=== PATIENT | female | born 1935 | race Caucasian/White ===

== ENCOUNTER 2017-03-31 14:22 | Emergency (ER) | payer MEDICARE, BC ==
[~2017-03-31] VITALS: Ht 160 cm; Wt 61.2 kg
[~2017-03-31 14:22] MED LIST: ASPIRIN EC325 MG PO; AZOPT10 ML OD; CHLORTHALIDONE25 MG PO; CIPRO500 MG PO; CLOBETASOL PROP15 GM TOP; DIOVAN160 MG PO; FLAGYL500 MG PO; MELOXICAM7.5 MG PO; METOPROLOL SUCC50 MG PO; ONDANSETRON ODT4 MG PO; PROMETHAZINE HC25 M1 PO; TACROLIMUS30 G1 TP; TIMOLOL MALEATE5 M1 OPTH; TRAVATAN Z5 ML OPTH; VALSARTAN160 MG PO
[2017-03-31] MEDS ORDERED: MELOXICAM15 MG PO (14:34)
[2017-03-31] MEDS ORDERED: COREG3.125 MG PO (15:26)
--- NOTE | 2017-04-01 17:03 | EKG ---
[facility] [address] [place], [place] [address] Signed Sinus bradycardia with 1st degree AV block with frequent premature ventricular complexes in a pattern of bigeminy Left anterior fascicular block Anteroseptal infarct , age undetermined Abnormal ECG No previous ECGs available Confirmed by DEIDRA NGUYEN MD ([id number]) on 04/01/2017 5:02:52 PM Electronically Signed By: DEIDRA NGUYEN MD 04/01/17 1703 PATIENT NAME: IRAJ ARIZMENDI Electrocardiogram DATE OF : 33 PHYSICIAN: DEIDRA NGUYEN MD REPORT #: [id number] REPORT IS CONFIDENTIAL AND NOT TO BE RELEASED WITHOUT AUTHORIZATION
== END 2017-03-31 15:41 | disposition home or self-care (01) ==
LOC: ED 14:22
DX: R00.2 Palpitations (principal); I25.2 Old myocardial infarction; Z95.1 Presence of aortocoronary bypass graft; Z90.49 Acquired absence of other specified parts of digestive tract; Z88.5 Allergy status to narcotic agent; Z88.2 Allergy status to sulfonamides; Z88.8 Allergy status to other drugs, medicaments and biological substances; Z79.899 Other long term (current) drug therapy; Z79.82 Long term (current) use of aspirin
CPT/HCPCS: 71010; 80053; 83880; 84484; 85025; 93005; 93010; 99284

== ENCOUNTER 2017-04-09 06:45 | Emergency (ER) | payer MEDICARE, BC ==
[~2017-04-09] VITALS: Ht 160 cm; Wt 61.2 kg
[~2017-04-09 06:45] MED LIST changes: +COREG3.125 MG PO; +MELOXICAM15 MG PO
[2017-04-09] MEDS ORDERED: VALSARTAN160 MG PO (06:57)
[2017-04-09] MEDS ORDERED: COREG3.125 MG PO (06:57)
== END 2017-04-09 09:45 | disposition home or self-care (01) ==
LOC: ED 06:45
DX: T84.020A Dislocation of internal right hip prosthesis, initial encounter (principal); I25.2 Old myocardial infarction; Z95.1 Presence of aortocoronary bypass graft; Z90.49 Acquired absence of other specified parts of digestive tract; Z88.2 Allergy status to sulfonamides; Z88.1 Allergy status to other antibiotic agents; Z88.5 Allergy status to narcotic agent
CPT/HCPCS: 73502; 94799; 96374; 96375; 99283; J1170; J2704

== ENCOUNTER 2017-12-26 16:27 | Emergency (ER) | payer MEDICARE, BC ==
[~2017-12-26] VITALS: Ht 160 cm; Wt 57.1 kg
--- OUTSIDE RECORDS SUMMARY | ~2017-12-26 | XMS | Clinical Summary ---
Demographics + + + | Address | [address] | | | [place] [address] | + + + | Home Phone | | + + + | Preferred Language | Unknown | + + + | Marital Status | | + + + | Denominational Affiliation | Unknown | + + + | Race | Unknown | + + + | Ethnic Group | Unknown | + + + Author + + + | Author | [facility] | + + + | Organization | [facility] | + + + | Address | Unknown | + + + | Phone | Unavailable | + + + Support + + +---------+ + | Name | Relationship | Address | Phone | + + +---------+ + | Beto Gomez | ECON | Unknown | | + + +---------+ + Care Team Providers + +------+ + | Care College Athlete Name | Role | Phone | + +------+ + | Pan Sarabia DO | PP | | + +------+ + Allergies + + + + + + | Active Allergy | Reactions | Severity | Noted | Comments | | | | | Date | | + + + + + + | Chlorthalidone | Other (See Comments) | Medium | 04/20/20 | Very low sodium, | | | | | 17 | felt weak | + + + + + + | Cephalexin | GI Distress | Low | 04/20/20 | | | | | | 17 | | + + + + + + | Oxycodone | Rash | Medium | 04/20/20 | | | | | | 17 | | + + + + + + | Sulfa Antibiotics | Rash | Medium | 04/06/20 | | | | | | 16 | | + + + + + + | Hydrocodone-Acetamin | Other (See Comments) | Medium | 04/20/20 | Not sure, confused | | ophen | | | 17 | and rash | + + + + + + Current Medications + + +--------+---------+------+------+-------+ | Prescription | Sig. | Disp. | Refills | Star | End | Statu | | | | | | t | Date | s | | | | | | Date | | | + + +--------+---------+------+------+-------+ | Magnesium 250 MG | Take 250 mg by mouth | | | | | Activ | | TABS tablet | daily. | | | | | e | + + +--------+---------+------+------+-------+ | aspirin 81 MG EC | Take 162 mg by mouth | | | | | Activ | | tablet | daily with | | | | | e | | | breakfast. | | | | | | + + +--------+---------+------+------+-------+ | Acetaminophen | Take by mouth as | | | | | Activ | | (TYLENOL 8 HOUR PO) | needed. | | | | | e | + + +--------+---------+------+------+-------+ | valsartan (DIOVAN) | Take 1 tablet by | | | 02/2 | | Activ | | 320 MG tablet | mouth daily. | | | 09/23 | | e | | | | | | 18 | | | + + +--------+---------+------+------+-------+ | amiodarone | Take 1 tablet by | 45 | 11 | /2 | 10/06 | Activ | | (PACERONE) 200 MG | mouth daily. | tablet | | 09/23 | 09/23 | e | | tablet | | | | 18 | 19 | | + + +--------+---------+------+------+-------+ | apixaban (ELIQUIS) | Take 1 tablet by | | | 10/06 | | Activ | | 2.5 MG tablet | mouth 2 (two) times | | | 09/23 | | e | | | daily. Cr 0.83 | | | 18 | | | | | 05/01/2917, samples | | | | | | | | given | | | | | | + + +--------+---------+------+------+-------+ | amLODIPine | Take 1 tablet by | 90 | 1 | 03/0 | 03/0 | Activ | | (NORVASC) 5 MG | mouth daily. | tablet | | 03/23 | 03/23 | e | | tablet | | | | 18 | 19 | | + + +--------+---------+------+------+-------+ Active Problems + + + | Problem | Noted Date | + + + | First degree AV block | 07/16/2017 | + + + + + | Overview: The OK interval was 230 ms on April 20, 2017. | + + + + + | Paroxysmal atrial fibrillation (HCC) | 06/01/2017 | + + + + + | Overview: She has daily episodes of atrial fibrillation, | | associated with increased heart rates, fatigue and shortness of | | breath. Has "no energy". On a recent transtelephonic event | | recorder, there were episodes of A. Fib with heart rates into the | | 170 bpm range. There was one 2.6 second pause. An echocardiogram | | in April 2016 revealed mild MR and TR, normal atrial sizes, | | grade 2 diastolic dysfunction and normal LV systolic function. | | Pulmonary pressures were top normal. I recommended adding | | amiodarone 400 mg twice per day for one week followed by 400 mg | | daily for a month and then 200 mg per day. Pulmonary function | | tests need to be obtained at baseline, then every 6 months, | | including carbon monoxide diffusion capacity. Thyroid function | | tests need to be performed at least the same intervals. I have | | reviewed the risks, benefits, and rationale for amiodarone with | | the patient in detail. She is anticoagulated with apixaban. The | | chads 2 vascular score is 4. A sleep study will be ordered, since | | she may well have sleep apnea. | + + + + + | Murmur, cardiac | 06/01/2017 | + + + + + | Overview: Mild mitral regurgitation seen on an echo. | + + + + + | Sinus bradycardia | 06/01/2017 | + + + + + | Overview: She has tachybradycardia syndrome. Rapid A. Fib . | | Given the sinus node dysfunction and her advanced age, amiodarone | | is probably the best agent to use. If she does not tolerate that | | because of bradycardia, a permanent pacemaker would be | | indicated. Amiodarone is fairly sinus node friendly, so hopefully | | a pacemaker will not be necessary. | + + + + + | Coronary artery disease | 06/01/2017 | + + + | Hx of CABG | 06/01/2017 | + + + + + | Overview: Hx CAB, CABG*1 (GUO to LAD). | | Hx PCI/stent: Hx POBA. | | Last Cath: 1991 Has no symptoms of angina. | + + + + + | Essential hypertension with goal blood pressure less than 130/80 | 04/06/2016 | + + + + + | Overview: Controlled on current therapy. Last Assessment & | | Plan: Hypertension, controlled, she'll continue her valsartan | | 160 mg daily, decrease the metoprolol succinate to 25 mg daily. 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 81yo | | WF, with symptoms of lightheadedness, usually when she arises. | | She is aware that she has a slow heart rate. She has a history | | of hypertension, and apparently had history of SVT for which she | | is placed on metoprolol. She's not had any episodes of racing | | heart lately, but she is aware of the skipped beats, she | | describes them as the thumb. This usually happens in the | | evenings, worse if she has had some wine or coffee. When she is | | active, she is unaware of the palpitations. . Known to | | have coronary artery disease with previous bypass surgery in | | 1991, apparently had a number of angioplasties prior to this | | (before the stent era). She thinks she may have had a small | | heart attack, but there was no congestive heart failure, | | congenital heart disease, rheumatic heart disease, or syncope. | | At our last visit, we reduced her metoprolol to 25 mg daily, and | | she states that she is feeling better. Recent echocardiogram | | reveals normal LV systolic function, mild MR, mild TR. Will | | continue current medications, follow clinically.Hx CAB, | | CABG*1 (GUO to LAD).Hx PCI/stent: Hx POBA.Hx Pacemaker/ICD: | | noLast Cath: 1991[facility], 04/14/2016 ([facility]): TDS, LVEF | | 65-70%, cardiac chamber dimensions grossly NML, mild MR, mild TR, | | est systolic PAP 32-37mmHg.Last Stress Test: na48hr , | | 04/17/2015: sinus rhythm, 50-82, averaging 59bpm, frequent PAC's, | | 15-beat PAT at 153bpm, occ PVC's, 7 pauses (2.1sec).ECG, | | 04/06/2016: sinus bradycardia, 51bpm, 1st degree AVB, LVH with ST-T | | changes, LAFB, PRWP. | + + Resolved Problems + + + + | Problem | Noted | Resolved | | | Date | Date | + + + + | Paroxysmal SVT (supraventricular tachycardia) | 06/01/20 | | | | 17 | 7 | + + + + | Bigeminal rhythm | 06/01/20 | | | | 17 | 7 | + + + + | Heart palpitations | 06/01/20 | | | | 17 | 7 | + + + + | HTN, goal below 140/80 | 06/01/20 | | | | 17 | 7 | + + + + Encounters +--------+ + + + + | Date | Type | Specialty | Care Team | Description | +--------+ + + + + | 11/23/ | Documentati | | Yamile Elena Only | | 2017 | on Only | | CHRISTOPH Irizarry | | +--------+ + + + + | 11/08/ | Refill | | Vianney Cherry | Medication Refill | | 2017 | | | ZIYAD Subramanian | | +--------+ + + + + | 11/02/ | Documentveronica | | Vianney Cherry | Other (BP log) | | 2017 | on Only | | ZIYAD Subramanian | | +--------+ + + + + | 10/25/ | Office | | Aris Curran, | Coronary artery | | 2018 | Visit | | MD | disease involving | | | | | | coronary bypass | | | | | | graft of lumbee | | | | | | heart with angina | | | | | | pectoris (HCC) | | | | | | (Primary Dx); | | | | | | Essential | | | | | | hypertension with | | | | | | goal blood pressure | | | | | | less than 130/80; | | | | | | Paroxysmal atrial | | | | | | fibrillation ([facility]); | | | | | | Sinus bradycardia | +--------+ + + + + | 10/25/ | Documentati | | Dilip Vianney | Other (BP log) | | 2018 | on Only | | ZIYAD Subramanian | | +--------+ + + + + from Last 3 Months Family History + + +-------+ + | Medical History | Relation | Name | Comments | + + +-------+ + | Heart disease | Mother | Naoma | | + + +-------+ + | High cholesterol | Mother | Naoma | | + + +-------+ + + +-------+ + + | Relation | Name | Status | Comments | + +-------+ + + | Father | | | ruptured appendix | | | | (Age | | | | | 48) | | + +-------+ + + | Mother | Naoma | | HTN, heart disease | | | | (Age | | | | | 86) | | + +-------+ + + Social History + +-------+ +--------+------+ [...] on file | | + + + Last Filed Vital Signs + + + + | Vital Sign | Reading | Time Taken | + + + + | Blood Pressure | 160/80 | 10/25/2017 1:27 PM PST | + + + + | Pulse | 53 | 10/25/2017 1:27 PM PST | + + + + | Temperature | - | - | + + + + | Respiratory Rate | 16 | 05/05/2016 11:10 AM PDT | + + + + | Oxygen Saturation | 98% | 10/25/2017 1:27 PM PST | + + + + | Inhaled Oxygen | - | - | | Concentration | | | + + + + | Weight | 58.5 kg (129 lb) | 10/25/2017 1:27 PM PST | + + + + | Height | 162.6 cm (5' 4") | 10/25/2017 1:27 PM PST | + + + + | Body Mass Index | 22.14 | 10/25/2017 1:27 PM PST | + + + + Plan of Treatment +--------+---------+ + + + | Date | Type | Specialty | Care Team | Description | +--------+---------+ + + + | 01/10/ | Office | | Aris Curran, | | | 2018 | Visit | | MD Dianna Romero | | | | | | Dr [address], | | | | | | [place] [address] | | | | | | [phone] | | | | | | | | +--------+---------+ + + + + + + + + | Health Maintenance | Due Date | Last Done | Comments | + + + + + | Vaccine: | | | | | Dtap/Tdap/Td (1 - | 3 | | | | Tdap) | | | | + + + + + | DEXA SCAN SCREENING | | | | | | 9 | | | + + + + + | Vaccine: | | | | | Pneumococcal 65+ | 9 | | | | Low/Medium Risk (1 | | | | | of 2 - PCV13) | | | | + + + + + | Vaccine: Influenza | | | | | (Season Ended) | 8 | | | + + + + + Results Not on filefrom Last 3 Months Insurance + +--------+ +------+-------+ + | Payer | Benefi | Subscriber | Type | Phone | Address | | | t Plan | ID | | | | | | / | | | | | | | Group | | | | | + +--------+ +------+-------+ + | PREMERA | PREMER | xxxxxxxxx | | | [address] [address] | | | [employer] BLUE | | | | [place], [place] | | | [place] | | | | [phone] | | | FED | | | | | | | PPO | | | | | + +--------+ +------+-------+ + | MEDICARE | MEDICA | xxxxxxxxxxx | | | [address] | | | RE | | | | [place] [phone] | | | IP-OP | | | | | + +--------+ +------+-------+ + + +--------+ +--------+ + + | Guarantor Name | Accoun | Relation to | Date | Phone | Billing Address | | | t Type | Patient | of | | | | | | | | | | + +--------+ +--------+ + + | MARYANN GOMEZ | Person | Self [birth year] Home: | [address] | | | al/Nathaniel | | 1935 | [phone] [place] [address] | | | ashli | | | [phone] | | + +--------+ +--------+ + +
--- OUTSIDE RECORDS SUMMARY | ~2017-12-26 | XMS | Encounter Summary ---
Demographics + + + | Address | [address] | | | [place] [address] | + + + | Home Phone | | + + + | Preferred Language | Unknown | + + + | Marital Status | | + + + | Spiritism Affiliation | Unknown | + + + | Race | Unknown | + + + | Ethnic Group | Unknown | + + + Author + + + | Author | [facility] | + + + | Organization | [facility] | + + + | Address | Unknown | + + + | Phone | Unavailable | + + + Support + + +---------+ + | Name | Relationship | Address | Phone | + + +---------+ + | Beto Gomez | ECON | Unknown | | + + +---------+ + Care Team Providers + +------+ + | Care Right Of Way Cutter Name | Role | Phone | + +------+ + | Pan Sarabia DO | PCP | | + +------+ + Reason for Visit +--------+ + | Reason | Comments | +--------+ + | Other | BP log | +--------+ + Encounter Details +--------+ + + + + | Date | Type | Department | Care Team | Description | +--------+ + + + + | 11/02/ | Documentati | [facility] | Vianney Cherry | Other (BP log) | | 2018 | on Only | Cardiology Wojciech Subramanian CMA | | | | | [address] | | | | | | [place] | | | | | | [address] | | | | | | [phone] | | | +--------+ + + + [...] + + | 01/10/ | Office | Cardiology | Aris Curran, | | | 2017 | Visit | | MD Dianna Romero | | | | | | Dr [address], | | | | | | [place] [address] | | | | | | [phone] | | | | | | | | +--------+---------+ + + + as of this encounter Visit Diagnoses Not on filein this encounter"
--- OUTSIDE RECORDS SUMMARY | ~2017-12-26 | XMS | Encounter Summary ---
Demographics + + + | Address | [address] | | | [place] [address] | + + + | Home Phone | | + + + | Preferred Language | Unknown | + + + | Marital Status | | + + + | Muslim Affiliation | Unknown | + + + | Race | Unknown | + + + | Ethnic Group | Unknown | + + + Author + + + | Author | [facility] | + + + | Organization | [facility] | + + + | Address | Unknown | + + + | Phone | Unavailable | + + + Support + + +---------+ + | Name | Relationship | Address | Phone | + + +---------+ + | Beto Gomez | ECON | Unknown | | + + +---------+ + Care Team Providers + +------+ + | Care Sheet Rock Hanger Name | Role | Phone | + +------+ + | Pan Sarabia DO | PCP | | + +------+ + Reason for Visit + + + | Reason | Comments | + + + | Labs Only | | + + + Encounter Details +--------+ + + + + | Date | Type | Department | Care Team | Description | +--------+ + + + + | 11/23/ | Documentati | [facility] | [place], | Labs Only | | 2017 | on Only | [place] | CHRISTOPH Irizarry | | | | | [address] | | | | | | [place] | | | | | | [address] | | | | | | [phone] | | | +--------+ + + + [...] | | | | | | [place] [address] | | | | | | [phone] | | | | | | | | +--------+---------+ + + + as of this encounter Visit Diagnoses Not on filein this encounter"
--- OUTSIDE RECORDS SUMMARY | ~2017-12-26 | XMS | Encounter Summary ---
Demographics + + + | Address | [address] | | | [place] [address] | + + + | Home Phone | | + + + | Preferred Language | Unknown | + + + | Marital Status | | + + + | Mormonism Affiliation | Unknown | + + + | Race | Unknown | + + + | Ethnic Group | Unknown | + + + Author + + + | Author | [facility] | + + + | Organization | [facility] | + + + | Address | Unknown | + + + | Phone | Unavailable | + + + Support + + +---------+ + | Name | Relationship | Address | Phone | + + +---------+ + | Beto Gomez | ECON | Unknown | | + + +---------+ + Care Team Providers + +------+ + | Care Development Trainer Name | Role | Phone | + +------+ + | Pan Isabel DO | PCP | | + +------+ + Reason for Visit + + + | Reason | Comments | + + + | Atrial Fibrillation | | + + + Encounter Details +--------+---------+ + + + | Date | Type | Department | Care Team | Description | +--------+---------+ + + + | 10/25/ | Office | D[facility]RE[facility] Corbett | Aris Thayer, | Coronary artery | | 2018 | Visit | Cardiology Karen | [address] | disease involving | | | | [address] | Dr Sanders, | coronary bypass | | | | [facility] [address] | [place] [address] | graft of [place] | | | | [place] [address] | [phone] | heart with angina | | | | [phone] | | pectoris (HCC) | | | | | | (Primary Dx); | | | | | | Essential | | | | | | hypertension with | | | | | | goal blood pressure | | | | | | less than 130/80; | | | | | | Paroxysmal atrial | | | | | | fibrillation (HCC); | | | | | | Sinus bradycardia | +--------+---------+ + + + Social History [...] PM PST | + + + + in this encounter Progress Aris Holley MD - 10/25/2017 1:30 PM PSTFormatting of this note may be different fro m the original. Date of visit: 10/25/2017 Primary Care Physician: PAN ISABEL CHIEF COMPLAINT: Chief Complaint Patient presents with Atrial Fibrillation HISTORY OF PRESENT ILLNESS: Maryann Tejada is 82 y.o. here for follow up visit. Modestly active female. Denies any recurrent palpitations. Has been tolerating amiodarone 200 mg daily. On anticoagulation with apixaban however she has been having daily bleeding from her gums a nd easy bruising hence she was taking only once a day. Previously evaluated for paroxysmal atrial fibrillation. Tolerate beta blockers secondary t o fatigue and tiredness. Event monitor was done up beta murray and patient was found to have few pauses longest of 2.6 seconds. Could not tolerate furosemide 20 mg secondary to orthostatic hypotension. 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 History of SVT. Past medical history, SH, FH, and medications were reviewed in the chart. Medications: Outpatient Encounter Prescriptions as of 10/25/2017 Medication Sig Dispense Refill amiodarone (PACERONE) 200 MG tablet Take 1 tablet by mouth daily. 45 tablet 11 apixaban (ELIQUIS) 2.5 MG tablet Take 1 tablet by mouth 2 (two) times daily. Cr 0.83 05/01/2917, samples given aspirin 81 MG EC tablet Take 162 mg by mouth daily with breakfast. Magnesium 250 MG TABS tablet Take 250 mg by mouth daily. valsartan (DIOVAN) 320 MG tablet Take 1 tablet by mouth daily. [DISCONTINUED] amiodarone (PACERONE) 200 MG tablet Take 2 tablets by mouth 2 (two) time s daily. 400 mg twice a day for one week, then 400 mg once a day for one month, then 200 mg once a day (Patient taking differently: Take 250 mg by mouth daily.) 60 tablet 11 [DISCONTINUED] amiodarone (PACERONE) 200 MG tablet Take 1.5 tablets by mouth daily. [DISCONTINUED] apixaban (ELIQUIS) 5 MG tablet Take 1 tablet by mouth 2 (two) times lizabeth y. Cr 0.83 05/01/2917, samples given 180 tablet 3 [DISCONTINUED] valsartan (DIOVAN) 320 MG tablet Take 0.5 tablets by mouth 2 (two) times daily. (Patient taking differently: Take 320 mg by mouth daily.) 120 tablet 2 Acetaminophen (TYLENOL 8 HOUR PO) Take by mouth as needed. amLODIPine (NORVASC) 2.5 MG tablet Take 1 tablet by mouth daily. 30 tablet 1 No facility-administered encounter medications on file as of 10/25/2017. Allergies Allergies Allergen Reactions Chlorthalidone Other (See Comments) Very low sodium, felt weak Oxycodone Rash Sulfa Antibiotics Rash Vicodin [Hydrocodone-Acetaminophen] Other (See Comments) Not sure, confused and rash Keflex [Cephalexin] GI Distress REVIEW OF SYSTEMS: Constitutional: negative for fatigue. No fever, chills, and rigors. HEENT: Wears glasses. Negative for nosebleeds, ear discharge, nasal congestion. Eyes: Negative for visual disturbance, redness, or secretion. Respiratory: Negative for cough, sputum production, hemoptysis, wheezing. Cardiovascular: As HPI. Gastrointestinal: Negative for nausea, vomiting, diarrhea, abdominal pain and blood in stoo l. Genitourinary: Negative for dysuria or hematuria. Musculoskeletal: Back and hip pain with previous history of hip replacement. Skin: Negative for rash. Neurological: Negative for dizziness. No numbness. No recent falls. No slurred speech. Hematological: No significant bruising. Psychiatric/Behavioral: No depression or anxiety. PHYSICAL EXAM Vital Signs: BP 132/70 (BP Location: Left upper arm, Patient Position: Sitting) | Pulse 53 | Ht 1.626 m (5' 4") | Wt 58.5 kg (129 lb) | SpO2 98% | BMI 22.14 kg/m GENERAL APPEARANCE: Alert, oriented, cooperative, no distress, appears stated age. HEENT: Extraocular movements were intact. No jaundice. Pupiles round and reactive. NECK: No JVD, lymphadenopathy. Carotid upstrokes normal. No carotid bruit heard. CARDIAC: Regular rhythm and rate. There is normal S1 and S2. No galop. Systolic murmur in the left sternal border radiating to the apex consistent with MR. CHEST: Normal bilateral symmetrical chest excursion.ackles or wheezing. No evidence of dull ness. ABDOMEN: Soft.No tenderness or guarding. No palpable organs. Active bowel sounds. EXTREMITIES: No lower extremities edema, cyanosis or clubbing. NEURO: Alert and oriented times three with no focal deficit. Cranial nerves are grossly no rmal. SKIN: Warm and dry. No rash. Psych: Normal affect and mood. DATA 2016: Sodium 136, potassium 4.5, chloride 102, glucose 116, BUN 20, creatinine 0.83, GFR 66. AST 18, ALT 14, alk phos 90, total bilirubin 0.5, magnesium 2.2 03/14/2016: White blood cells 6.9, looping 12.2, platelets 202, sodium 134, potassium 4.3, chloride 103 , bicarbonate 22, BUN 19, creatinine 0.87. Calcium calcium 9.7, glucose 89. Total cholestero l 193, triglycerides 93, LDL 106, HDL 69, ALT 21, AST 32, hemoglobin A1c 5.5. Hx CAB, CABG*1 (GUO to LAD). Hx PCI/stent: Hx POBA. Last Cath: 1991 Last Echo, 04/14/2016 ([facility]): TDS, LVEF 65-70%, cardiac chamber dimensions grossly NML, mild MR, mild TR, est systolic PAP 32-37mmHg. 05/01/2017 Predominantly sinus rhythm. Average heart rate was 60 bpm with a range of 54-107 bpm. Multiple episodes of supraventricular tachycardia with the longest at 18 beats, and the fas test heart rate in the 161 bpm. Paroxysmal atrial fibrillation with RVR, with a longest episode of 49 minutes and a rate of 161 bpm and average rate at 75 bpm 48hr HM, 04/17/2015: sinus rhythm, 50-82, averaging 59bpm, frequent PAC's, 15-beat PAT at 15 3bpm, occ PVC's, 7 pauses (2.1sec). ECG, 07/12/2017 Ordered and reviewed by myself Sinus rhythm with first-degree AV block, poor R-wave progres jarred, frequent premature rupture contractions, premature ventricular contractions. 04/06/2016: sinus bradycardia, 51bpm, 1st degree AVB, LVH with ST-T changes, LAFB, PRWP. ASSESSMENT: Patient is 82-year-old female with the following medical problems. 1. 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 Denies any chest pain, no anginal symptoms. 2. Paroxysmal atrial fibrillation. On rate control strategy. Controlled with amiodarone Cou ld not tolerate beta blockers secondary to fatigue and tiredness patient was found to have m arked bradycardia heart rate will decrease to the 30s. CHADSVASc of 4. 3. Preserved LV function. 4. Hypertension, left pressure is above goal. Monitored at home and has been elevated. 5. Mild mitral regurgitation with no signs of congestive heart failure. Plan: Patient blood pressure has been above goal. However tolerating the amiodarone. Could not to lerate beta blockers. 1. Continue with Valsartan 320 mg po q day. Continue to monitor blood pressure. 2. Continue with anticoagulation. Patient is complaining of recurrent bleeding gums and has been decreasing her Apixaban to once daily, hence will change that to 2.5 mg bid. 3. We will start amlodipine 2.5 mg po q day and monitor patient's blood pressure. 4. I will follow up with the patient in 3 months. 5. Discussed an exercise program/ walking daily. *This report has been prepared using a voice recognition system. The report was reviewed fo r accuracy, however, sound-alike word errors, addition and/or deletions may occur. If there is any question about this report please contact me. Aris Thayer MD, MPHin this encounter Plan of Treatment +--------+---------+ + + + | Date | Type | Specialty | Care Team | Description | +--------+---------+ + + + | 01/10/ | Office | Cardiology | Aris Thayer, | | | 2018 | Visit | | MD Dianna Romero | | | | | | Dr Sanders, | | | | | | [place] [address] | | | | | | [phone] | | | | | | | | +--------+---------+ + + + + +--------+ + + | Name | Priori | Associated Diagnoses | Order Schedule | | | ty | | | + +--------+ + + | TSH | Routin | Paroxysmal atrial | Expected: | | | e | fibrillation ([facility]) | 11/22/2017, Expires: | | | | | 10/25/2018 | + +--------+ + + | Comprehensive metabolic panel | Routin | Coronary artery | Expected: | | | e | disease involving | 11/22/2017, Expires: | | | | coronary bypass | 10/25/2018 | | | | graft of [place] | | | | | heart with angina | | | | | pectoris ([facility]) | | | | | Essential | | | | | hypertension with | | | | | goal blood pressure | | | | | less than 130/80 | | | | | Paroxysmal atrial | | | | | fibrillation ([facility]) | | + +--------+ + + | CBC and differential | Routin | Coronary artery | Expected: | | | e | disease involving | 11/22/2017, Expires: | | | | coronary bypass | 10/25/2018 | | | | graft of [place] | | | | | heart with angina | | | | | pectoris ([facility]) | | | | | Essential | | | | | hypertension with | | | | | goal blood pressure | | | | | less than 130/80 | | | | | Paroxysmal atrial | | | | | fibrillation ([facility]) | | + +--------+ + + as of this encounter Visit Diagnoses + + | Diagnosis | + + | Coronary artery disease involving coronary bypass graft of [place] heart with angina | | pectoris ([facility]) - Primary | + + | Essential hypertension with goal blood pressure less than 130/80 | + + | Paroxysmal atrial fibrillation (HCC) | + + | Atrial fibrillation | + + | Sinus bradycardia | + + | Other specified cardiac dysrhythmias | + +
--- OUTSIDE RECORDS SUMMARY | ~2017-12-26 | XMS | Encounter Summary ---
Demographics + + + | Address | [address] | | | [place] [address] | + + + | Home Phone | | + + + | Preferred Language | Unknown | + + + | Marital Status | | + + + | Buddhism Affiliation | Unknown | + + + | Race | Unknown | + + + | Ethnic Group | Unknown | + + + Author + + + | Author | [facility] | + + + | Organization | [facility] | + + + | Address | Unknown | + + + | Phone | Unavailable | + + + Support + + +---------+ + | Name | Relationship | Address | Phone | + + +---------+ + | Beto Gomez | ECON | Unknown | | + + +---------+ + Care Team Providers + +------+ + | Care Investment Counselor Name | Role | Phone | + [...] Description | +--------+--------+ + + + | 11/08/ | Refill | DERREK Aric | Vianney Cherry | Medication Refill | | 2017 | | Cardiology [place] Subramanian C[facility] | | | | | [address] | | | | | | [address] | | | | | | [place] [address] | | | | | | [phone] | | | +--------+--------+ + + + [...] | | | | | | [place] [address] | | | | | | [phone] | | | | | | | | +--------+---------+ + + + as of this encounter Visit Diagnoses Not on filein this encounter"
--- OUTSIDE RECORDS SUMMARY | ~2017-12-26 | XMS | Encounter Summary ---
Demographics + + + | Address | [address] | | | [place] [address] | + + + | Home Phone | | + + + | Preferred Language | Unknown | + + + | Marital Status | | + + + | Evangelical Affiliation | Unknown | + + + | Race | Unknown | + + + | Ethnic Group | Unknown | + + + Author + + + | Author | [facility] | + + + | Organization | [facility] | + + + | Address | Unknown | + + + | Phone | Unavailable | + + + Support + + +---------+ + | Name | Relationship | Address | Phone | + + +---------+ + | Beto Gomez | ECON | Unknown | | + + +---------+ + Care Team Providers + +------+ + | Care Garage Door Installer Name | Role | Phone | + [...] | coronary bypass | | | | [facility] [address] | [place] [address] | graft of [place] | | | | [place] [address] | [phone] | heart with angina | | | | [phone] | | pectoris (HCC) | | | [...] POBA. Last Cath: 1991 Last Echo, 04/14/2016 ([facility]): TDS, LVEF 65-70%, cardiac chamber dimensions grossly [...] | | | | | | [place] [address] | | | | | | [phone] | | | | | | | | +--------+---------+ + + + + +--------+ + + | Name | Priori | Associated Diagnoses | Order Schedule | | | ty | | | + +--------+ + + | TSH | Routin | Paroxysmal atrial | Expected: | | | e | fibrillation ([facility]) | 11/22/2017, Expires: | | | | | 10/25/2018 | + +--------+ + + | Comprehensive metabolic panel | Routin | Coronary artery | Expected: | | | e | disease involving | 11/22/2017, Expires: | | | | coronary bypass | 10/25/2018 | | | | graft of [place] | | | | | heart with angina | | | | | pectoris ([facility]) | | | | | Essential | | | | | hypertension with | | | | | goal blood pressure | | | | | less than 130/80 | | | | | Paroxysmal atrial | | | | | fibrillation ([facility]) | | + +--------+ + + | CBC and differential | Routin | Coronary artery | Expected: | | | e | disease involving | 11/22/2017, Expires: | | | | coronary bypass | 10/25/2018 | | | | graft of [place] | | | | | heart with angina | | | | | pectoris ([facility]) | | | | | Essential | | | | | hypertension with | | | | | goal blood pressure | | | | | less than 130/80 | | | | | Paroxysmal atrial | | | | | fibrillation ([facility]) | | + +--------+ + + as of this encounter Visit Diagnoses + + | Diagnosis | + + | 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
--- OUTSIDE RECORDS SUMMARY | ~2017-12-26 | XMS | Encounter Summary ---
Demographics + + + | Address | [address] | | | [place] [address] | + + + | Home Phone | | + + + | Preferred Language | Unknown | + + + | Marital Status | | + + + | Faith Affiliation | Unknown | + + + | Race | Unknown | + + + | Ethnic Group | Unknown | + + + Author + + + | Author | [facility] | + + + | Organization | [facility] | + + + | Address | Unknown | + + + | Phone | Unavailable | + + + Support + + +---------+ + | Name | Relationship | Address | Phone | + + +---------+ + | Beto Gomez | ECON | Unknown | | + + +---------+ + Care Team Providers + +------+ + | Care Music Director Name | Role | Phone | + [...] + + | 10/25/ | Documentati | DERREK Corbett | Vianney Cherry | Saud (BP log) | | 2018 | on Only | Ny [place] | ZIYAD Subramanian | | | | | [address] | | | | | | [address] | | | | | | [place] [address] | | | | | | [phone] | | | +--------+ + + + [...] [place], | | | | | | [place] [id number] | | | | | | [phone] | | | | | | | | +--------+---------+ + + + as of this encounter Visit Diagnoses Not on filein this encounter"
--- OUTSIDE RECORDS SUMMARY | ~2017-12-26 | XMS | Encounter Summary ---
Demographics + + + | Address | [address] | | | [place] [address] | + + + | Home Phone | | + + + | Preferred Language | Unknown | + + + | Marital Status | | + + + | Yazdanism Affiliation | Unknown | + + + | Race | Unknown | + + + | Ethnic Group | Unknown | + + + Author + + + | Author | [facility] | + + + | Organization | [facility] | + + + | Address | Unknown | + + + | Phone | Unavailable | + + + Support + + +---------+ + | Name | Relationship | Address | Phone | + + +---------+ + | Beto Gomez | ECON | Unknown | | + + +---------+ + Care Team Providers + +------+ + | Care Motor Vehicle Licence Examiner Name | Role | Phone | + [...] | | | | | [place] [address] | | | | | | [phone] | | | +--------+--------+ + + + [...] | | | | | | [place] [address] | | | | | | [phone] | | | | | | | | +--------+---------+ + + + as of this encounter Visit Diagnoses Not on filein this encounter"
--- OUTSIDE RECORDS SUMMARY | ~2017-12-26 | XMS | Encounter Summary ---
Demographics + + + | Address | [address] | | | [place] [address] | + + + | Home Phone | | + + + | Preferred Language | Unknown | + + + | Marital Status | | + + + | Hindu Affiliation | Unknown | + + + | Race | Unknown | + + + | Ethnic Group | Unknown | + + + Author + + + | Author | [facility] | + + + | Organization | [facility] | + + + | Address | Unknown | + + + | Phone | Unavailable | + + + Support + + +---------+ + | Name | Relationship | Address | Phone | + + +---------+ + | Beto Gomez | ECON | Unknown | | + + +---------+ + Care Team Providers + +------+ + | Care Rn Homecare Name | Role | Phone | + [...] [place] | | | | | | [address] | | | | | | [phone] | | | +--------+ + + + [...] | | | | | | [place] [address] | | | | | | [phone] | | | | | | | | +--------+---------+ + + + as of this encounter Visit Diagnoses Not on filein this encounter"
--- OUTSIDE RECORDS SUMMARY | ~2017-12-26 | XMS | Encounter Summary ---
Demographics + + + | Address | [address] | | | [place] [address] | + + + | Home Phone | | + + + | Preferred Language | Unknown | + + + | Marital Status | | + + + | Adventism Affiliation | Unknown | + + + | Race | Unknown | + + + | Ethnic Group | Unknown | + + + Author + + + | Author | [facility] | + + + | Organization | [facility] | + + + | Address | Unknown | + + + | Phone | Unavailable | + + + Support + + +---------+ + | Name | Relationship | Address | Phone | + + +---------+ + | Beto Gomez | ECON | Unknown | | + + +---------+ + Care Team Providers + +------+ + | Care Supervisor Looping Name | Role | Phone | + [...] | | | | | [place] [address] | | | | | | [phone] | | | +--------+ + + + [...] | | | | | | [place] [address] | | | | | | [phone] | | | | | | | | +--------+---------+ + + + as of this encounter Visit Diagnoses Not on filein this encounter"
--- OUTSIDE RECORDS SUMMARY | ~2017-12-26 | XMS | Clinical Summary ---
Demographics + + + | Address | [address] | | | [place] [address] | + + + | Home Phone | | + + + | Preferred Language | Unknown | + + + | Marital Status | | + + + | Baptism Affiliation | Unknown | + + + | Race | Unknown | + + + | Ethnic Group | Unknown | + + + Author + + + | Author | [facility] [facility] | + + + | Organization | [facility] | + + + | Address | Unknown | + + + | Phone | Unavailable | + + + Support + + +---------+ + | Name | Relationship | Address | Phone | + + +---------+ + | Beto Gomez | ECON | Unknown | | + + +---------+ + Care Team Providers + +------+ + | Care Bilingual School Psychologist Name | Role | Phone | + [...] + + + + | Overview: The VT interval was 230 ms on April 20, [...] artery disease involving coronary bypass graft of [place] | 04/06/2016 | | heart with angina [...] | | | | | graft of [place] | | | | | | heart [...] | | | | | | fibrillation ([facility]); | | | | | | [...] | | | | | | [place] [address] | | | | | | [phone] | | | | | | | [...] | [phone] | | | [address] [address] | | | A BLUE | | | | [place], [place] | | | CROSS | | | | [address] | | | FED | | | | | | | PPO | | | | | + +--------+ +------+-------+ + | MEDICARE | MEDICA | xxxxxxxxxxx | | | [address] | | | RE | | | | [place] [phone] | | | IP-OP | | | [...] | 1935 | [phone] | [place] [address] | | | ashli | | | [phone] | | + +--------+ +--------+ + +
--- OUTSIDE RECORDS SUMMARY | ~2017-12-26 | XMS | Clinical Summary ---
Demographics + + + | Address | [address] | | | [place] [address] | + + + | Home Phone | | + + + | Preferred Language | Unknown | + + + | Marital Status | | + + + | Sabianist Affiliation | [phone] | + + + | Race | Unknown | + + + | Ethnic Group | Unknown | + + + Author + + + | Author | [facility] | | | and [place] | + + + | Organization | [facility] | | | and [place] | [...] Team Providers + +------+ + | Care Photograph Editor Name | Role | Phone | + [...]
--- OUTSIDE RECORDS SUMMARY | ~2017-12-26 | XMS | Encounter Summary ---
Demographics + + + | Address | [address] | | | [place] [address] | + + + | Home Phone | | + + + | Preferred Language | Unknown | + + + | Marital Status | | + + + | Adventist Affiliation | Unknown | + + + | Race | Unknown | + + + | Ethnic Group | Unknown | + + + Author + + + | Author | [facility] [employer] [facility] | + + + | Organization | [facility] | + + + | Address | Unknown | + + + | Phone | Unavailable | + + + Support + + +---------+ + | Name | Relationship | Address | Phone | + + +---------+ + | Beto Gomez | ECON | Unknown | | + + +---------+ + Care Team Providers + +------+ + | Care Lint Cleaner Name | Role | Phone | + [...] [place] | | | | | | [address] | | | | | | [phone] | | | +--------+ + + + [...] | | | | | | [place] [address] | | | | | | [phone] | | | | | | | | +--------+---------+ + + + as of this encounter Visit Diagnoses Not on filein this encounter"
--- OUTSIDE RECORDS SUMMARY | ~2017-12-26 | XMS | Clinical Summary ---
Demographics + + + | Address | [address] | | | [place] [address] | + + + | Home Phone | | + + + | Preferred Language | Unknown | + + + | Marital Status | | + + + | Judaism Affiliation | 1077 | + + + | Race | Unknown | + + + | Ethnic Group | Unknown | + + + Author + + + | Author | [facility] | | | and [place] | + + + | Organization | [facility] | | | and [...] Team Providers + +------+ + | Care Fractionation Supervisor Name | Role | Phone | [...]
[2017-12-26] MEDS ORDERED: ELIQUIS5 MG PO (16:42)
[2017-12-26] MEDS ORDERED: AMIODARONE HCL200 MG PO (16:42)
[2017-12-26] MEDS ORDERED: AMLODIPINE BESYL5 MG PO (16:43)
[2017-12-26] MEDS ORDERED: PROMETHAZINE-C118 ML PO (16:43)
[2017-12-26] MEDS ORDERED: MAGNESIUM400 MG PO (16:44)
[2017-12-26] MEDS ORDERED: AUGMENTIN 875-1 EACH PO (16:59)
[2017-12-26] MEDS ORDERED: METHYLPREDNISOLO4 M1 PO (16:59)
== END 2017-12-26 17:10 | disposition home or self-care (01) ==
LOC: ED 16:27
DX: J40 Bronchitis, not specified as acute or chronic (principal); I25.2 Old myocardial infarction; Z88.5 Allergy status to narcotic agent; Z88.2 Allergy status to sulfonamides; Z88.1 Allergy status to other antibiotic agents; Z79.899 Other long term (current) drug therapy
CPT/HCPCS: 99284

== ENCOUNTER 2018-03-09 07:06 | Emergency (ER) | payer MEDICARE, BC ==
[~2018-03-09] VITALS: Ht 160 cm; Wt 57.1 kg
[~2018-03-09 07:06] MED LIST changes: +AMIODARONE HCL200 MG PO; +AMLODIPINE BESYL5 MG PO; +AUGMENTIN 875-1 EACH PO; +ELIQUIS5 MG PO; +MAGNESIUM400 MG PO; +METHYLPREDNISOLO4 M1 PO; +PROMETHAZINE-C118 ML PO
[2018-03-09] MEDS ORDERED: ASPIR-LOW81 MG PO (07:23)
[2018-03-09] MEDS ORDERED: METHYLPREDNISOLO4 M1 PO (10:33)
[2018-03-09] MEDS ORDERED: IPRAT-ALBUT 0.5-3 ML INH (10:34)
== END 2018-03-09 10:59 | disposition home or self-care (01) ==
LOC: ED 07:06
DX: R06.00 Dyspnea, unspecified (principal); I25.2 Old myocardial infarction; Z88.5 Allergy status to narcotic agent; Z88.2 Allergy status to sulfonamides; Z88.1 Allergy status to other antibiotic agents; Z79.82 Long term (current) use of aspirin; Z79.899 Other long term (current) drug therapy
CPT/HCPCS: 71046; 80053; 83880; 84484; 85025; 94640; 99284

== ENCOUNTER 2018-05-24 13:53 | Emergency (ER) | payer MEDICARE, BC ==
[~2018-05-24] VITALS: Ht 160 cm; Wt 54.4 kg
--- OUTSIDE RECORDS SUMMARY | ~2018-05-24 | XMS | Encounter Summary ---
Demographics + + + | Address | [address] | | | [place] [address] | + + + | Home Phone | | + + + | Preferred Language | Unknown | + + + | Marital Status | | + + + | Bahai Affiliation | Unknown | + + + | Race | Unknown | + + + | Ethnic Group | Unknown | + + + Author + + + | Author | [facility] | + + + | Organization | [facility] | + + + | Address | Unknown | + + + | Phone | Unavailable | + + + Support + + +---------+ + | Name | Relationship | Address | Phone | + + +---------+ + | Beto Gomez | ECON | Unknown | | + + +---------+ + Care Team Providers + +------+ + | Care Pattern Repair Person Name | Role | Phone | + +------+ + | Diaz Acevedo MD | PCP | | + +------+ + Reason for Referral MRI/CAT Scan (Routine) + +--------+ + + + + | Status | Reason | Specialty | Diagnoses / | Referred By | Referred To | | | | | Procedures | Contact | Contact | + +--------+ + + + + | Authorized | | | Diagnoses | Luis Fernando, | ST MAJOR | | | | | | [place] | [facility] | | | | | Drug-induced | MD Ginger | [address] | | | | | pulmonary | [address] | [address] | | | | | disease | [address] | [place] | | | | | Amiodarone | [place], | [address] | | | | | pulmonary | [place] [address] | Phone: | | | | | toxicity | Phone: | [phone] | | | | | Procedures | [phone] | Fax: | | | | | CT chest | Fax: | [phone] | | | | | high | [phone] | | | | | | resolution | | | + +--------+ + + + + Reason for Visit +--------+ + | Reason | Comments | +--------+ + | Cough | | +--------+ + Consultation (Urgent) + + + + + + + | Status | Reason | Specialty | Diagnoses / | Referred By | Referred To | | | | | Procedures | Contact | Contact | + + + + + + + | Authorized | Specialty | Pulmonary | Diagnoses | Bina, | Luis Fernando, | | | Services | Disease / | Chronic | MD Aris | Manasa | | | Required | Pulmonology | cough | [address] | MD Ginger | | | | | Shortness of | [address] | [address] | | | | | breath | [address] | | | | | | Essential | [place], [place] | [place], [place] | | | | | hypertension | [address] | [address] Phone: | | | | | with goal | Phone: | [phone] | | | | | blood | [phone] | Fax: | | | | | pressure | Fax: | [phone] | | | | | less than | [phone] | | | | | | 130/80 | | | + + + + + + + Encounter Details +--------+---------+ + + + | Date | Type | Department | Care Team | Description | +--------+---------+ + + + | 04/10/ | Office | [facility] | Luis Fernando, | Drug-induced | | 2018 | Visit | Pulmonology [address] | Manasa Miles, | pulmonary disease | | | | [address] | MD [address] | (Primary Dx); | | | | [place], [place] | [place] [address] | Amiodarone pulmonary | | | | [address] | [phone] | toxicity; | | | | [phone] | | 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 | +--------+---------+ + + + Social History + +-------+ +--------+------+ | Tobacco Use | Types | Packs/Day | Years | Date | | | | | Used | | + +-------+ +--------+------+ | Never Smoker | | | | | + +-------+ +--------+------+ + +---+---+---+ | Smokeless Tobacco: | | | | | Never Used | | | | + +---+---+---+ + + + | Sex Assigned at | Date Recorded | | | | + + + | Not on file | | + + + as of this encounter Last Filed Vital Signs + + + + | Vital Sign | Reading | Time Taken | + + + + | Blood Pressure | 138/73 | 04/10/2018 4:18 PM PDT | + + + + | Pulse | 70 | 04/10/2018 4:18 PM PDT | + + + + | Temperature | 36.7 C (98.1 F) | 04/10/2018 4:18 PM PDT | + + + + | Respiratory Rate | - | - | + + + + | Oxygen Saturation | 96% | 04/10/2018 4:18 PM PDT | + + + + | Inhaled Oxygen | - | - | | Concentration | | | + + + + | Weight | 53.1 kg (117 lb) | 04/10/2018 4:18 PM PDT | + + + + | Height | 162.6 cm (5' 4") | 04/10/2018 4:18 PM PDT | + + + + | Body Mass Index | 20.08 | 04/10/2018 4:18 PM PDT | + + + + in this encounter Progress Notes Manasa Gould MD - 04/10/2018 4:30 PM PDTFormatting of this note may be dif ferent from the original. Subjective: Patient ID: Maryann Gomez is a 83 y.o. female with CAD post CABGx1, valvular heart disease, AF on Eliquis and previously on Amiodarone, referred to us for a cough. HPI Ms Gomez is an 83 yr old woman who has been on Amiodarone since the Fall of 2016. She was s tarted on this by her Spike Machine Operator to help with her AF as she was fatigued and short of raymundo th with this. She was on 200 mg BID, and starting this January, developed an intractable cough a nd dyspnea on exertion. Amiodarone was stopped in March (total of 8 months on this medication ). Since then, she reports, that she has been on 3 cycles of prednisone, 6 days each. She sa ys that each time she comes off prednisone, she developed the cough again. Finally, after he r third dose, she has felt some relief and is no longer coughing that much. She continues to be short of breath on exertion, though, and cannot do her usual chores at home. She is able to shower and get dressed still. Previous to this, she has not had any history of chronic c ough, and has never had any asthma. She denies dysphagia, aspiration or reflux. She has been sleeping better, but a few weeks ago was woken up constantly by her cough. She denies sino nasal s/s or environmental allergies. She has had on and off pedal edema with associated hyp eremia of her legs. She is not on oxygen. She was also placed on Advair and albuterol nebulization [facility] Spike Machine Operator. SOCIAL HISTORY She is a never smoker but did have some second hand smoke. 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 She has no animals at home. She lived in [place] when she was younger/ The following portions of the patient's history were reviewed and updated as appropriate an d is available elsewhere in the record: allergies, current medications, past family history, past medical history, past social history, past surgical history and problem list. Review of Systems Constitutional: Positive for fatigue. Negative for activity change, appetite change, chills , diaphoresis, fever and unexpected weight change. HENT: Negative for congestion, nosebleeds, postnasal drip, rhinorrhea and sore throat. Eyes: Negative for visual disturbance. Respiratory: Positive for cough and shortness of breath. Negative for apnea, choking, chest tightness, wheezing and stridor. Cardiovascular: Positive for leg swelling. Negative for chest pain and palpitations. Gastrointestinal: Positive for constipation. Negative for diarrhea and nausea. Genitourinary: Negative for dysuria and frequency. Musculoskeletal: Positive for arthralgias. Negative for joint swelling, myalgias and neck p ain. Skin: Negative for rash. Neurological: Negative for dizziness, weakness and light-headedness. Hematological: Negative for adenopathy. Psychiatric/Behavioral: Positive for sleep disturbance. Active Ambulatory Problems Diagnosis Date Noted Essential hypertension with goal blood pressure less than 130/80 04/06/2016 Coronary artery disease involving coronary bypass graft of [place] heart with angina pec toris (HCC) 04/06/2016 Paroxysmal atrial fibrillation (HCC) 06/01/2017 Murmur, cardiac 06/01/2017 Sinus bradycardia 06/01/2017 Coronary artery disease 06/01/2017 Hx of CABG 06/01/2017 First degree AV block 07/16/2017 Chronic cough 02/20/2018 Shortness of breath 02/20/2018 Resolved Ambulatory Problems Diagnosis Date Noted Paroxysmal SVT (supraventricular tachycardia) 06/01/2017 Bigeminal rhythm 06/01/2017 Heart palpitations 06/01/2017 HTN, goal below 140/80 06/01/2017 Past Medical History: Diagnosis Date Benign essential HTN Bradycardia Dry eye Glaucoma Past Surgical History Procedure Laterality Date BREAST SURGERY cyst- benign CARDIAC SURGERY CATARACT EXTRACTION bilateral CHOLECYSTECTOMY COLONOSCOPY CORONARY ARTERY BYPASS GRAFT single bypass EYE SURGERY lasik for glaucoma HARDWARE PRESENT right hip joint, and Rt. knee HYSTERECTOMY ovaries removed TONSILLECTOMY UNLISTED PROCEDURE ARTHROSCOPY Objective: Physical Exam BP 138/73 (BP Location: Left upper arm, Patient Position: Sitting) | Pulse 70 | Temp 98.1 F (36.7 C) (Oral) | Ht 1.626 m (5' 4") | Wt 53.1 kg (117 lb) | SpO2 96% | BMI 20.08 kg/m Vital signs reviewed. Oxygen saturation noted at 96% on ambient air, desaturated to 89% on ambulation GENERAL: pleasant, cooperative, oriented, not in distress HEENT: pink conjunctiva, anicteric sclerae, moist oral mucosae and without any lesions, nor mal appearing nasal mucosae; no JVD; MALAMPATTI 3; no thyromegaly; no cervicolymphadenopathi es CVS: PMI laterally displaced, IRRR, S1 and S2, loud diastolic and systolic murmur along the L parasternal border and R parasternal border respectively. CHEST: Examination of the chest was unremarkable. There were no bony deformities, no asymme try, and no other abnormalities. LUNGS: Normal effort, Equal in expansion, resonant to percussion, clear and equal breath so unds, no wheezes/rales/rhonchi ABDOMEN: Flat abdomen, NABS, non-tender on palpation, Traube's space intact, liver span nor mal, no masses palpated EXTREMITIES: good distal pulses, no cyanosis, no edema but with hyperemia and scattered sma ll macular patches on both tibial regions, no clubbing, no nail abnormalities NEURO: awake and oriented, gait normal, no focal neurologic deficits LABORATORY AND IMAGING Pulmonary Function Test: 03/15/18 FEV1 1.67 (94%) FVC 2.09 (88%) FEV1/FVC 80 TLC 3.59 (73%) RV/TLC DLCO 9.8 (43%) CXR done on on 03/09/18 reviewed and this showed diffuse interstitial thickening of both lung s. Echo done on 02/13/18 reviewed Impression 1. This was a technically difficult study with suboptimal views. 2. The left ventricle appears normal in size and systolic function EF 60-65%. 3. There is no pericardial effusion. Assessment and Plan: 1. 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 This was discontinued over a month ago and she was started on oral prednison e, and also was placed on Advair and prn albuterol nebulization. 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 I have r equested for a high res CT of the chest to get a better definition of these changes. She is currently off prednisone without recurrence of cough or increase in her breathlessne ss. This is reassuring. O2 saturation on ambulation dropped to 89% and so we have requested that she obtains an oximeter to document saturations, and to let us know if this falls persi stently to 88% and below. She was also instructed to let us know if her cough comes back. - CT chest high resolution; Future 2. Amiodarone pulmonary toxicity As above. She was advised to stop her Advair and prn albuterol as this will not help addres s a restrictive lung disease or an interstitial lung disease which is what I think she has. - CT chest high resolution; Future 3. Restrictive lung disease PFT shows a mild restriction with profoundly reduced diffusion capacity. Will have to repea t PFT in the next 3-6 months as part of surveillance. Thank you for allowing us to participate in this patient's care. A return visit has been requested/scheduled in 4 weeks after the above tests. The patient was instructed to call our clinic for any questions, and for any concerns regarding worsening dyspnea, cough or change in sputum production. We will see the patient sooner than the recommended follow up date, if with any worsening of symptoms. Manasa Gould MD Pulmonary and Critical Care Medicine [facility] [address] [place] [address] in this encounter Plan of Treatment +--------+---------+ + + + | Date | Type | Specialty | Care Team | Description | +--------+---------+ + + + | 06/01/ | Office | Pulmonology | Luis Fernando, | | | 2017 | Visit | | Manasa Miles, | | | | | | MD [address] | | | | | | [place] [address] | | | | | | [phone] | | | | | | | | +--------+---------+ + + + | 07/11/ | Office | Cardiology | Aris Curran, | | | 2018 | Visit | | MD [address] | | | | | | [address], | | | | | | [place] [address] | | | | | | [phone] | | | | | | | | +--------+---------+ + + + + +--------+ + + | Name | Priori | Associated Diagnoses | Order Schedule | | | ty | | | + +--------+ + + | CT chest high resolution | Routin | Drug-induced | Expected: | | | e | pulmonary disease | 04/11/2018, Expires: | | | | Amiodarone pulmonary | 04/10/2019 | | | | toxicity | | + +--------+ + + as of this encounter Visit Diagnoses + + | Diagnosis | + + | Drug-induced pulmonary disease - Primary | + + | Other diseases of lung, not elsewhere classified | + + | Amiodarone pulmonary toxicity | + + | Respiratory conditions due to other specified external agents | + + | Restrictive lung disease | + + | Other diseases of lung, not elsewhere classified | + +
--- OUTSIDE RECORDS SUMMARY | ~2018-05-24 | XMS | Encounter Summary ---
Demographics + + + | Address | [address] | | | [place] [address] | + + + | Home Phone | | + + + | Preferred Language | Unknown | + + + | Marital Status | | + + + | Jehovah'S Witness Affiliation | Unknown | + + + | Race | Unknown | + + + | Ethnic Group | Unknown | + + + Author + + + | Author | [facility] | + + + | Organization | [facility] | + + + | Address | Unknown | + + + | Phone | Unavailable | + + + Support + + +---------+ + | Name | Relationship | Address | Phone | + + +---------+ + | Beto Gomez | ECON | Unknown | | + + +---------+ + Care Team Providers + +------+ + | Care Temporary Office Assistant Name | Role | Phone | + +------+ + | Diaz Acevedo MD | PCP | | + +------+ + Reason for Visit + + + | Reason | Comments | + + + | Medication Refill | | + + + Encounter Details +--------+--------+ + + + | Date | Type | Department | Care Team | Description | +--------+--------+ + + + | 04/30/ | Refill | [facility] [place] | Aris Curran, | Medication Refill | | 2017 | | Cardiology Karen | [address] | | | | | [address] | [address], | | | | | [facility] [address] | [place] [address] | | | | | [place] [address] | [phone] | | | | | [phone] | | | +--------+--------+ + + + Social History + +-------+ [...] + + + as of this encounter Plan of Treatment +--------+---------+ + + + | Date | Type | Specialty | Care Team | Description | +--------+---------+ + + + | 06/01/ | Office | Pulmonology | Luis Fernando, | | | 2017 | Visit | | Manasa Miles, | | | | | | MD [address] | | | | | | [place] [address] | | | | | | [phone] | | | | | | | | +--------+---------+ + + + | 07/11/ | Office | Cardiology | Aris Curran, | | | 2017 | Visit | | MD [address] | | | | | | Dr [address], | | | | | | [place] [address] | | | | | | [phone] | | | | | | | | +--------+---------+ + + + as of this encounter Visit Diagnoses Not on filein this encounter"
--- OUTSIDE RECORDS SUMMARY | ~2018-05-24 | XMS | Encounter Summary ---
Demographics + + + | Address | [address] | | | [place] [address] | + + + | Home Phone | | + + + | Preferred Language | Unknown | + + + | Marital Status | | + + + | Tenriism Affiliation | Unknown | + + + | Race | Unknown | + + + | Ethnic Group | Unknown | + + + Author + + + | Author | [facility] [employer] [employer] [facility] | + + + | Organization | [facility] | + + + | Address | Unknown | + + + | Phone | Unavailable | + + + Support + + +---------+ + | Name | Relationship | Address | Phone | + + +---------+ + | Beto Gomez | ECON | Unknown | | + + +---------+ + Care Team Providers + +------+ + | Care Die Sizer Name | Role | Phone | + [...] + | 04/30/ | Refill | [facility] | Kassy, | Medication Refill | | 2018 | | Cardiology Aris | CHRISTOPH Irizarry | | | | | [address] | | | | | | [place] | | | | | | [address] | | | | | | [phone] | | | +--------+--------+ + + + [...] | | | | | | [place] [address] | | | | | | [phone] | | | | | | | | +--------+---------+ + + + | 07/11/ | Office | Cardiology | BinaAris, | | | 2017 | Visit | | MD [address] | | | | | | Dr [address], | | | | | | [place] [address] | | | | | | [phone] | | | | | | | | +--------+---------+ + + + as of this encounter Visit Diagnoses Not on filein this encounter"
--- OUTSIDE RECORDS SUMMARY | ~2018-05-24 | XMS | Encounter Summary ---
Demographics + + + | Address | [address] | | | [place] [address] | + + + | Home Phone | | + + + | Preferred Language | Unknown | + + + | Marital Status | | + + + | Caodaism Affiliation | Unknown | + + + | Race | Unknown | + + + | Ethnic Group | Unknown | + + + Author + + + | Author | [facility] | + + + | Organization | [facility] | + + + | Address | Unknown | + + + | Phone | Unavailable | + + + Support + + +---------+ + | Name | Relationship | Address | Phone | + + +---------+ + | Beto Gomez | ECON | Unknown | | + + +---------+ + Care Team Providers + +------+ + | Care Homeowner Association Manager Name | Role | Phone | + [...] MAJOR | | | | | | [place] | [facility] | | | | | Drug-induced | MD Ginger | [address] | | | | | pulmonary | [address] | [address] | | | | | disease | [address] | [place] | | | | | Amiodarone | [place], | [address] | | | | | pulmonary | [place] [address] | Phone: | | | | | toxicity | Phone: | [phone] | | | | | Procedures | [phone] | Fax: | | | | | CT chest | Fax: | [phone] | | | | | high | [phone] | | | | | | resolution [...] | | | | | Essential | [place], [place] | [place], [place] | | | | | hypertension | [address] | [address] Phone: | | | | | with goal | Phone: | [phone] | | | | | blood | [phone] | Fax: | | | | | pressure | Fax: | [phone] | | | | | less than | [phone] | | | | | | 130/80 | | | + + + + + + + Encounter Details +--------+---------+ + + + | Date | Type | Department | Care Team | Description | +--------+---------+ + + + | 04/10/ | Office | [facility] | Luis Fernando, | Drug-induced | | 2018 | Visit | Pulmonology [address] | Manasa Miles, | pulmonary disease | | | | [address] | MD [address] | (Primary Dx); | | | | [place], [place] | [place] [address] | Amiodarone pulmonary | | | | [address] | [phone] | toxicity; | | | | [phone] | | Restrictive lung | | | [...] was s tarted on this by her Customer Engineer to help with her AF as she [...] on Advair and albuterol nebulization by her [facility] Customer Engineer. SOCIAL HISTORY She is a never smoker but did have some second hand smoke. 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 She has no animals at home. She lived in [place] when she was younger/ The following portions [...] artery disease involving coronary bypass graft of [place] heart with angina pec toris (HCC) 04/06/2016 [...] Gould MD Pulmonary and Critical Care Medicine [facility] [address] [place] [address] in this encounter Plan of Treatment +--------+---------+ + + + | Date | Type | Specialty | Care Team | Description | +--------+---------+ + + + | 06/01/ | Office | Pulmonology | Luis Fernando, | | | 2017 | Visit | | Manasa Miles, | | | | | | MD [address] | | | | | | [place] [address] | | | | | | [phone] | | | | | | | | +--------+---------+ + + + | 07/11/ | Office | Cardiology | Aris Curran, | | | 2018 | Visit | | MD [address] | | | | | | Dr [address], | | | | | | [place] [address] | | | | | | [phone] | | | | | | | [...]
--- OUTSIDE RECORDS SUMMARY | ~2018-05-24 | XMS | Encounter Summary ---
Demographics + + + | Address | [address] | | | [place] [address] | + + + | Home Phone | | + + + | Preferred Language | Unknown | + + + | Marital Status | | + + + | Islam Affiliation | Unknown | + + + | Race | Unknown | + + + | Ethnic Group | Unknown | + + + Author + + + | Author | [facility] | + + + | Organization | [facility] | + + + | Address | Unknown | + + + | Phone | Unavailable | + + + Support + + +---------+ + | Name | Relationship | Address | Phone | + + +---------+ + | Beto Gomez | ECON | Unknown | | + + +---------+ + Care Team Providers + +------+ + | Care Fire Controlman Name | Role | Phone | + [...] [place] | | | | | | [address] | | | | | | [phone] | | | +--------+--------+ + + + [...] | | | | | | [place] [address] | | | | | | [phone] | | | | | | | | +--------+---------+ + + + | 07/11/ | Office | Cardiology | BinaAris, | | | 2017 | Visit | | MD [address] | | | | | | Dr [address], | | | | | | [place] [address] | | | | | | [phone] | | | | | | | | +--------+---------+ + + + as of this encounter Visit Diagnoses Not on filein this encounter"
--- OUTSIDE RECORDS SUMMARY | ~2018-05-24 | XMS | Encounter Summary ---
Demographics + + + | Address | [address] | | | [place] [address] | + + + | Home Phone | | + + + | Preferred Language | Unknown | + + + | Marital Status | | + + + | Orthodoxy Affiliation | Unknown | + + + | Race | Unknown | + + + | Ethnic Group | Unknown | + + + Author + + + | Author | [facility] [facility] | + + + | Organization | [facility] | + + + | Address | Unknown | + + + | Phone | Unavailable | + + + Support + + +---------+ + | Name | Relationship | Address | Phone | + + +---------+ + | Beto Gomez | ECON | Unknown | | + + +---------+ + Care Team Providers + +------+ + | Care Fire Prevention Specialist Name | Role | Phone | + +------+ + | Pan Sarabia DO | PCP | | + +------+ + Encounter Details +--------+ + + + + | Date | Type | Department | Care Team | Description | +--------+ + + + + | 02/22/ | Orders Only | [facility] | Vianney Lim | At risk for | | 2017 | | [facility] | Robyn | amiodarone toxicity | | | | [id number] | | with termite control technician use | | | | [place], | | | | | | [place] [address] | | | | | | [phone] | | | +--------+ + + + + Social History + +-------+ [...] | 2017 | Visit | | Manasa Ginger, | | | | | | MD [address] | | | | | | [place] [address] | | | | | | [phone] | | | | | | | | +--------+---------+ + + + | 07/11/ | Office | Cardiology | Aris Curran, | | | 2017 | Visit | | MD [address] | | | | | | Dr [address], | | | | | | [place] [address] | | | | | | [phone] | | | | | | | | +--------+---------+ + + + as of this encounter Visit Diagnoses + + | Diagnosis | + + | At risk for amiodarone toxicity with fdc use | + + | Encounter for long-term (current) use of other medications | + +"
--- OUTSIDE RECORDS SUMMARY | ~2018-05-24 | XMS | Encounter Summary ---
Demographics + + + | Address | [address] | | | [place] [address] | + + + | Home Phone | | + + + | Preferred Language | Unknown | + + + | Marital Status | | + + + | Christian Affiliation | Unknown | + + + | Race | Unknown | + + + | Ethnic Group | Unknown | + + + Author + + + | Author | [facility] | + + + | Organization | [facility] | + + + | Address | Unknown | + + + | Phone | Unavailable | + + + Support + + +---------+ + | Name | Relationship | Address | Phone | + + +---------+ + | Beto Gomez | ECON | Unknown | | + + +---------+ + Care Team Providers + +------+ + | Care Licensed Clinical Social Worker Name | Role | Phone | + +------+ + | Pan Sarabia DO | PCP | | + +------+ + Reason for Visit +--------+ + | Reason | Comments | +--------+ + | Other | [facility] | +--------+ + Encounter Details +--------+ + + + + | Date | Type | Department | Care Team | Description | +--------+ + + + + | 03/29/ | Documentati | [facility] | Vianney Cherry | Other ([facility] | | 2018 | on Only | Cardiology Wojciech | ZIYAD Subramanian | Records) | | | | [address] | | | | | | [place] | | | | | | [address] | | | | | | [phone] | | | +--------+ + + + [...] Dr | | | | | | [place] [address] | | | | | | [phone] | | | | | | | | +--------+---------+ + + + | 07/11/ | Office | Cardiology | Aris Curran, | | | 2017 | Visit | | MD Dianna Romero | | | | | | Dr [address], | | | | | | [place] [address] | | | | | | [phone] | | | | | | | | +--------+---------+ + + + as of this encounter Visit Diagnoses Not on filein this encounter"
--- OUTSIDE RECORDS SUMMARY | ~2018-05-24 | XMS | Encounter Summary ---
Demographics + + + | Address | [address] | | | [place] [address] | + + + | Home Phone | | + + + | Preferred Language | Unknown | + + + | Marital Status | | + + + | Holiness Affiliation | Unknown | + + + | Race | Unknown | + + + | Ethnic Group | Unknown | + + + Author + + + | Author | [facility] [employer] [facility] | + + + | Organization | [facility] | + + + | Address | Unknown | + + + | Phone | Unavailable | + + + Support + + +---------+ + | Name | Relationship | Address | Phone | + + +---------+ + | Beto Gomez | ECON | Unknown | | + + +---------+ + Care Team Providers + +------+ + | Care Ball Rolling Machine Operator Name | Role | Phone | + [...] Description | +--------+--------+ + + + | 05/12/ | Refill | [facility] | Aris Curran, | Medication Refill | | 2017 | | Cardiology Karen | [address] | | | | | [address] | [address], | | | | | [facility] [address] | [place] [address] | | | | | [place] [address] | [phone] | | | | | [phone] | | | +--------+--------+ + + + [...] | | | | | | [place] [address] | | | | | | [phone] | | | | | | | | +--------+---------+ + + + | 07/11/ | Office | Cardiology | Aris Curran, | | | 2017 | Visit | | MD Dianna Romero | | | | | | Dr [address], | | | | | | [place] [address] | | | | | | [phone] | | | | | | | | +--------+---------+ + + + as of this encounter Visit Diagnoses Not on filein this encounter"
--- OUTSIDE RECORDS SUMMARY | ~2018-05-24 | XMS | Encounter Summary ---
Demographics + + + | Address | [address] | | | [place] [address] | + + + | Home Phone | | + + + | Preferred Language | Unknown | + + + | Marital Status | | + + + | Hinduism Affiliation | Unknown | + + + | Race | Unknown | + + + | Ethnic Group | Unknown | + + + Author + + + | Author | [facility] | + + + | Organization | [facility] | + + + | Address | Unknown | + + + | Phone | Unavailable | + + + Support + + +---------+ + | Name | Relationship | Address | Phone | + + +---------+ + | Beto Gomez | ECON | Unknown | | + + +---------+ + Care Team Providers + +------+ + | Care Plate Setter Name | Role | Phone | + +------+ + | Pan Sarabia DO | PCP | | + +------+ + Reason for Visit +--------+ + | Reason | Comments | +--------+ + | Other | chest xray | +--------+ + Encounter Details +--------+ + + + + | Date | Type | Department | Care Team | Description | +--------+ + + + + | 02/21/ | Documentati | [facility] | Vianney Cherry | Other (chest xray) | | 2017 | on Only | Cardiology Karen | ZIYAD Subramanian | | | | | [address] | | | | | | [address] | | | | | | [place] [address] | | | | | | [phone] | | | +--------+ + + + [...] | | | | | [place] [address] | | | | | | [phone] | | | | | | | | +--------+---------+ + + + | 07/11/ | Office | Cardiology | MichajanettAris, | | | 2017 | Visit | | MD Dianna Romero | | | | | | Dr [address], | | | | | | [place] [address] | | | | | | [phone] | | | | | | | | +--------+---------+ + + + as of this encounter Visit Diagnoses Not on filein this encounter"
--- OUTSIDE RECORDS SUMMARY | ~2018-05-24 | XMS | Encounter Summary ---
Demographics + + + | Address | [address] | | | [place] [address] | + + + | Home Phone | | + + + | Preferred Language | Unknown | + + + | Marital Status | | + + + | Baptism Affiliation | Unknown | + + + | Race | Unknown | + + + | Ethnic Group | Unknown | + + + Author + + + | Author | [facility] | + + + | Organization | [facility] | + + + | Address | Unknown | + + + | Phone | Unavailable | + + + Support + + +---------+ + | Name | Relationship | Address | Phone | + + +---------+ + | Beto Gomez | ECON | Unknown | | + + +---------+ + Care Team Providers + +------+ + | Care Diesel Truck Mechanic Name | Role | Phone | + +------+ + | Diaz Acevedo MD | PCP | | + +------+ + Encounter Details +--------+--------+ + + + | Date | Type | Department | Care Team | Description | +--------+--------+ + + + | 04/12/ | Refill | 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 | | | | [phone] | | | +--------+--------+ + + + [...] | | 2017 | Visit | | Manasakg Miles, | | | | | | [address] | | | | | | [place] [address] | | | | | | [phone] | | | | | | | | +--------+---------+ + + + | 07/11/ | Office | Cardiology | BinaDebbiemanda, | | | 2017 | Visit | | [address] | | | | | | Dr [address], | | | | | | [place] [address] | | | | | | [phone] | | | | | | | | +--------+---------+ + + + as of this encounter Visit Diagnoses + + | Diagnosis | + + | Shortness of breath - Primary | + + | Acute pneumonitis | + + | Amiodarone pulmonary toxicity | + + | Respiratory conditions due to other specified external agents | + +"
--- OUTSIDE RECORDS SUMMARY | ~2018-05-24 | XMS | Encounter Summary ---
Demographics + + + | Address | [address] | | | [place] [address] | + + + | Home Phone | | + + + | Preferred Language | Unknown | + + + | Marital Status | | + + + | Anglican Affiliation | Unknown | + + + | Race | Unknown | + + + | Ethnic Group | Unknown | + + + Author + + + | Author | [facility] [facility] | + + + | Organization | [facility] | + + + | Address | Unknown | + + + | Phone | Unavailable | + + + Support + + +---------+ + | Name | Relationship | Address | Phone | + + +---------+ + | Beto Gomez | ECON | Unknown | | + + +---------+ + Care Team Providers + +------+ + | Care Veterinary Bacteriologist Name | Role | Phone | + +------+ + | Diaz Acevedo MD | PCP | | + +------+ + Reason for Visit +--------+ + | Reason | Comments | +--------+ + | Other | 3-STEP | +--------+ + Encounter Details +--------+ + + + + | Date | Type | Department | Care Team | Description | +--------+ + + + + | 04/10/ | Documentati | [facility] | Soy Braxton, | Other (3-STEP) | | 2018 | on Only | Pulmonology [address] | [address] | | | | | [address] | | | | | | [place] | | | | | | [address] | | | | | | [phone] | | | +--------+ + + + [...] + + + as of this encounter Soy Wilkinson MA - 04/10/2018 5:01 PM PDT3 step testing Oximetry Exercise (code) 22057 1. At rest on room air: Time: 4:56pm Heart rate: 85 Oxygen saturations: 94% 2. At exercise on room air: Time: 4:57PM Heart rate: 104 Oxygen saturations: 89% 3. At exercise with oxygen: Time: Heart rate: Oxygen Saturations: Liters per minute: in this encounter Plan of Treatment +--------+---------+ + + + | Date | Type | Specialty | Care Team | Description | +--------+---------+ + + + | 06/01/ | Office | Pulmonology | Luis Fernando, | | | 2017 | Visit | | Manasa [place], | | | | | | MD [address] | | | | | | [place] [address] | | | | | | [phone] | | | | | | | | +--------+---------+ + + + | 07/11/ | Office | Cardiology | Aris Curran, | | | 2017 | Visit | | MD Dianna Romero | | | | | | Dr [address], | | | | | | [place] [address] | | | | | | [phone] | | | | | | | | +--------+---------+ + + + as of this encounter Visit Diagnoses Not on filein this encounter"
--- OUTSIDE RECORDS SUMMARY | ~2018-05-24 | XMS | Encounter Summary ---
Demographics + + + | Address | [address] | | | [place] [address] | + + + | Home Phone | | + + + | Preferred Language | Unknown | + + + | Marital Status | | + + + | Cheondoism Affiliation | Unknown | + + + | Race | Unknown | + + + | Ethnic Group | Unknown | + + + Author + + + | Author | [facility] [employer] [facility] | + + + | Organization | [facility] [facility] | + + + | Address | Unknown | + + + | Phone | Unavailable | + + + Support + + +---------+ + | Name | Relationship | Address | Phone | + + +---------+ + | Beto Gomez | ECON | Unknown | | + + +---------+ + Care Team Providers + +------+ + | Care Boat Motor Mechanic Name | Role | Phone | + +------+ + | Pan Isabel DO | PCP | | + +------+ + Reason for Referral Consultation (Urgent) + + + + + + + | Status | Reason | Specialty | Diagnoses / | Referred By | Referred To | | | | | Procedures | Contact | Contact | + + + + + + + | Authorized | Specialty | Pulmonary | Diagnoses | [place], | Luis Fernando, | | | Services | Disease / | Chronic | MD [place] | Manasa | | | Required | Pulmonology | cough | [address] | MD Ginger | | | | | Shortness of | [address] | [address] | | | | | breath | [address] | Dr | | | | | Essential | [place], [place] | [place] | | | | | hypertension | [address] | [address] Phone: | | | | | with goal | Phone: | [phone] | | | | | blood | [phone] | Fax: | | | | | pressure | Fax: | [phone] | | | | | less than | [phone] | | | | | | 130/80 | | | + + + + + + + Reason for Visit + + + | Reason | Comments | + + + | Follow-up | | + + + Encounter Details +--------+---------+ + + + | Date | Type | Department | Care Team | Description | +--------+---------+ + + + | 03/23/ | Office | [facility] | Aris Thayer, | Coronary artery | | 2018 | Visit | Cardiology Karen | [address] | disease involving | | | | [address] | [address], | [place] coronary | | | | [address] | [place] [address] | artery of [place] | | | | [place] [address] | [phone] | heart without angina | | | | [phone] | | pectoris (Primary | | | | | | Dx); Hx of CABG; | | | | | | Chronic cough; | | | | | | Shortness of breath; | | | | | | Essential | | | | | | hypertension with | | | | | | goal blood pressure | | | | | | less than 130/80; | | | | | | Paroxysmal atrial | | | | | | fibrillation (HCC) | +--------+---------+ + + + Social History [...] + + + | Blood Pressure | 104/60 | 03/23/2018 11:14 AM PDT | + + + + | Pulse | 64 | 03/23/2018 11:14 AM PDT | + + + + | Temperature | - | - | + + + + | Respiratory Rate | - | - | + + + + | Oxygen Saturation | 93% | 03/23/2018 11:14 AM PDT | + + + + | Inhaled Oxygen | - | - | | Concentration | | | + + + + | Weight | 53.5 kg (117 lb 14.4 | 03/23/2018 11:14 AM PDT | | | oz) | | + + + + | Height | 162.6 cm (5' 4") | 03/23/2018 11:14 AM PDT | + + + + | Body Mass Index | 20.24 | 03/23/2018 11:14 AM PDT | + + + + in this encounter Progress Notes Aris Thayer MD - 03/23/2018 11:15 AM PDTFormatting of this note may be different fro m the original. Date of visit: 03/23/2018 Primary Care Physician: PAN ISABEL CHIEF COMPLAINT: Chief Complaint Patient presents with Follow-up HISTORY OF PRESENT ILLNESS: Maryann Tejada is 83 y.o. here for follow up visits. Continued to have dry cough associated with shortness of breath. On last evaluation Medrol pack was given and that makes patient feel better for the time. Pulmonary function test was performed and showed severely decreased perfusion. Amiodarone w as stopped almost a month ago. Has been having greater episodes of palpitations shortly night time. Apixaban dose was decreased to 2.5 mg bid secondary to bleeding gums. Symptoms started in December 2017. At that time she was treated with antibiotic. Previously evaluated for paroxysmal atrial fibrillation. Could not tolerate beta blockers s econdary to fatigue and tiredness. Event monitor was done without beta murray and patient was found to have few pauses longes t of 2.6 seconds. Could not tolerate furosemide 20 mg secondary to orthostatic hypotension. Continue to be on amlodipine to 5 mg and valsartan 160 twice a day blood pressure has been controlled. 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 History of SVT. Past medical history, SH, FH, and medications were reviewed in the chart. Medications: Outpatient Encounter Prescriptions as of 03/23/2018 Medication Sig Dispense Refill amLODIPine (NORVASC) 5 MG tablet Take 1 tablet by mouth daily. 90 tablet 1 apixaban (ELIQUIS) 2.5 MG tablet Take 1 tablet by mouth 2 (two) times daily. Cr 0.83 05/01/2917, samples given aspirin 81 MG EC tablet Take 162 mg by mouth daily with breakfast. Magnesium 250 MG TABS tablet Take 250 mg by mouth daily. valsartan (DIOVAN) 320 MG tablet Take 0.5 tablets by mouth 2 (two) times daily. Acetaminophen (TYLENOL 8 HOUR PO) Take by mouth as needed. amiodarone (PACERONE) 200 MG tablet Take 1 tablet by mouth daily. (Patient not taking: Reported on 03/23/2018) 45 tablet 11 No facility-administered encounter medications on file as of 03/23/2018. Allergies Allergies Allergen Reactions Chlorthalidone Other (See Comments) Very low sodium, felt weak Oxycodone Rash Sulfa Antibiotics Rash Vicodin [Hydrocodone-Acetaminophen] Other (See Comments) Not sure, confused and rash Keflex [Cephalexin] GI Distress REVIEW OF SYSTEMS: Constitutional: positive for fatigue, lack of sleep. HEENT: Negative for nosebleeds, ear discharge, nasal congestion or soar throat. Eyes: Negative for visual disturbance, redness, or secretion. Respiratory: Positive for dry cough and shortness of breath. Cardiovascular: HPI. Gastrointestinal: Negative for nausea, vomiting, diarrhea, abdominal pain and blood in stoo l. Genitourinary: Negative for dysuria or hematuria. Musculoskeletal: arthritic and back pain. Skin: Negative for rash. Neurological: Negative for dizziness. No numbness. No recent falls. No slurred speech. Hematological: No significant bruising. Psychiatric/Behavioral: No depression or anxiety. PHYSICAL EXAM Vital Signs: BP 104/60 (BP Location: Left upper arm, Patient Position: Sitting) | Pulse 64 | Ht 1.626 m (5' 4") | Wt 53.5 kg (117 lb 14.4 oz) | SpO2 93% | BMI 20.24 kg/m GENERAL APPEARANCE: Alert, oriented, cooperative, no distress, appears stated age. HEENT: Extraocular movements were intact. No jaundice. Pupiles round and reactive. NECK: No JVD, lymphadenopathy. Carotid upstrokes normal. No carotid bruit heard. CARDIAC: Regular rhythm and rate. There is normal S1 and S2. Loud systolic murmur in the left sternal border. CHEST: Decreased air exchange bilaterally. ABDOMEN: Soft.No tenderness or guarding. No palpable organs. Active bowel sounds. EXTREMITIES: No lower extremities edema, cyanosis or clubbing. NEURO: Alert and oriented times three with no focal deficit. Cranial nerves are grossly no rmal. SKIN: Warm and dry. No rash. Psych: Normal affect and mood. DATA Lab Results Component Value Date/Time NA 137 02/20/2018 03:05 PM K 3.7 02/20/2018 03:05 PM CO2 26 02/20/2018 03:05 PM BUN 21 02/20/2018 03:05 PM CREATININE 1.1 (H) 02/20/2018 03:05 PM No results found for: WBC, HGB, HCT, MCV, PLT Lab Results Component Value Date GLUF 100 (H) 02/20/2018 TSH 1.02 07/13/2017 DATA 05/01/2017: Sodium 136, potassium 4.5, chloride 102, glucose 116, BUN 20, creatinine 0.83, GFR 66. T 18, ALT 14, alk phos 90, total [...] Hx POBA. Last Cath: 1991 Last Echo, 02/13/2018 TDS, normal LV size and function EF 60-65%. 04/14/2016 ([facility]'): TDS, LVEF 65-70%, cardiac chamber dimensions grossly NML, mild MR, mild TR, est systolic PA P 32-37mmHg. 05/01/2017 Predominantly sinus rhythm.Average heart rate was 60 bpm with a range of 54-107 bpm. Multiple episodes of supraventricular tachycardia with the longest at 18 beats,and the fa stest heart rate in the 161 bpm. Paroxysmal atrial fibrillation with RVR,with a longest episode of 49 minutes and a rate o f 161 bpm and average rate at 75 bpm 48hr , 04/17/2015: sinus rhythm, 50-82, averaging 59bpm, frequent PAC's, 15-beat PAT at 15 3bpm, occ PVC's, 7 pauses (2.1sec). ECG, 07/12/2017 Ordered and reviewed by myself Sinus rhythm with first-degree AV block, poor R-wave progres jarred, frequent premature rupture contractions, premature ventricular contractions. 04/06/2016: sinus bradycardia, 51bpm, 1st degree AVB, LVH with ST-T changes, LAFB, PRWP. ASSESSMENT: Patient is 83 y.o. female with the following medical problems. 1. 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 Denies any chest pain. 2. Abnormal pulmonary function test with severely decreased perfusion. 3. Cough and shortness of breath. No signs of JVD, lower Ext edema or weight gain. 4. Paroxysmal atrial fibrillation. stopped amiodarone secondary to possible pulmonic side effect. Could not tolerate beta blockers secondary to fatigue and tiredness patient was foun d to have marked bradycardia heart rate will decrease to the 30s. CHADSVASc of 4. 5. Preserved LV function. 6. Hypertension, blood pressure is controlled. 7. Mild mitral regurgitation with no signs of congestive heart failure. Plan: Patient continued to have symptoms of cough and shortness breath. [place] intermittently kina r with Medrol pack course. On start the patient on Advair inhaler. Pulmonary evaluation is recommended. On a previous encounter we did bedside echocardiogram. IVC is collapsing. No more than mild MR. BNP was ordered and was only mildly elevated. Amiodarone was stopped for possible pulmonic side effect. 1. Stop valsartan and start Losartan secondary to FDA recall. 2. Continue with anticoagulation. Patient had bleeding gums, plus age and weight hence on 2 .5 mg bid. 3. Continue with Amlodipine 5 mg once daily. 4. Further recommendations to follow. *This report has been prepared using a [...] Dr | | | | | | [place] [address] | | | | | | [phone] | | | | | | | | +--------+---------+ + + + | 07/11/ | Office | Cardiology | Aris Thayer, | | | 2017 | Visit | | MD Dianna Romero | | | | | | Dr [address], | | | | | | [place] [address] | | | | | | [phone] | | | | | | | | +--------+---------+ + + + + +--------+ + + | Name | Priori | Associated Diagnoses | Order Schedule | | | ty | | | + +--------+ + + | Ambulatory referral to | Routin | Chronic cough | Ordered: 03/23/2018 | | Pulmonology | e | Shortness of breath | | | | | Essential | | | | | hypertension with | | | | | goal blood pressure | | | | | less than 130/80 | | + +--------+ + + as of this encounter Visit Diagnoses + + | Diagnosis | + + | Coronary artery disease involving [place] coronary artery of [place] heart without angina | | pectoris - Primary | + + | Hx of CABG | + + | Postsurgical aortocoronary bypass status | + + | Chronic cough | + + | Cough | + + | Shortness of breath | + + | Essential hypertension with goal blood pressure less than 130/80 | + + | Paroxysmal atrial fibrillation (HCC) | + + | Atrial fibrillation | + +
--- OUTSIDE RECORDS SUMMARY | ~2018-05-24 | XMS | Encounter Summary ---
Demographics + + + | Address | [address] | | | [place] [address] | + + + | Home Phone | | + + + | Preferred Language | Unknown | + + + | Marital Status | | + + + | Temple Affiliation | Unknown | + + + | Race | Unknown | + + + | Ethnic Group | Unknown | + + + Author + + + | Author | [facility] | + + + | Organization | [facility] | + + + | Address | Unknown | + + + | Phone | Unavailable | + + + Support + + +---------+ + | Name | Relationship | Address | Phone | + + +---------+ + | Beto Gomez | ECON | Unknown | | + + +---------+ + Care Team Providers + +------+ + | Care Capacitor Inspector Name | Role | Phone | + +------+ + | Pan Isabel DO | PCP | | + +------+ + Reason for Visit + + + | Reason | Comments | + + + | Follow-up | echo done | + + + Encounter Details +--------+---------+ + + + | Date | Type | Department | Care Team | Description | +--------+---------+ + + + | 04/04/ | Office | [facility] | Aris Thayer, | Paroxysmal atrial | | 2018 | Visit | Cardiology Karen | [address] | fibrillation (HCC) | | | | [address] | Dr Sanders, | (Primary Dx); | | | | [facility] [address] | [place] [address] | Coronary artery | | | | [place] [address] | [phone] | disease involving | | | | [phone] | | knik coronary | | | | | | artery of knik | | | | | | heart without angina | | | | | | pectoris; Essential | | | | | | hypertension with | | | | | | goal blood pressure | | | | | | less than 130/80 | +--------+---------+ + + + Social History [...] + + + | Blood Pressure | 112/70 | 04/04/2018 11:44 AM PDT | + + + + | Pulse | 58 | 04/04/2018 11:44 AM PDT | + + + + | Temperature | - | - | + + + + | Respiratory Rate | - | - | + + + + | Oxygen Saturation | 98% | 04/04/2018 11:44 AM PDT | + + + + | Inhaled Oxygen | - | - | | Concentration | | | + + + + | Weight | 54.3 kg (119 lb 11.2 | 04/04/2018 11:44 AM PDT | | | oz) | | + + + + | Height | 162.6 cm (5' 4") | 04/04/2018 11:44 AM PDT | + + + + | Body Mass Index | 20.55 | 04/04/2018 11:44 AM PDT | + + + + in this encounter Progress Notes Aris Thayer MD - 04/04/2018 11:45 AM PDTFormatting of this note may be different fro m the original. Date of visit: 04/04/2018 Primary Care Physician: PAN ISABEL CHIEF COMPLAINT: Chief Complaint Patient presents with Follow-up echo done HISTORY OF PRESENT ILLNESS: Maryann is 83 y.o. here for follow up visits. Symptoms of shortness of breath have again improved with Medrol pack trial. Her dry cough have side of the little bit however continue to be a little bit short of raymundo th. Started on Advair bid. Review of sling was given Medrol pack may patient feel better for the time. Pulmonary [...] chart. Medications: Outpatient Encounter Prescriptions as of 04/04/2018 Medication Sig Dispense Refill Acetaminophen (TYLENOL 8 HOUR PO) Take by mouth as needed. albuterol (PROVENTIL HFA;VENTOLIN HFA) 108 (90 Base) MCG/ACT inhaler Inhale 2 puffs int o the lungs every 4 (four) hours as needed for Wheezing. amLODIPine (NORVASC) 5 MG tablet Take 1 tablet by mouth daily. 90 tablet 1 apixaban (ELIQUIS) 2.5 MG tablet Take 1 tablet by mouth 2 (two) times daily. 60 tablet 2 aspirin 81 MG EC tablet Take 162 mg by mouth daily with breakfast. fluticasone-salmeterol (ADVAIR) 500-50 MCG/DOSE diskus inhaler Inhale 1 puff into the l ungs 2 (two) times daily. 1 each 0 losartan (COZAAR) 100 MG tablet Take 1 tablet by mouth daily. 60 tablet 0 Magnesium 250 MG TABS tablet Take 250 mg by mouth daily. [DISCONTINUED] methylPREDNISolone 4 MG dose pack Follow package directions. (Patient no t taking: Reported on 04/04/2018) 21 tablet 0 No facility-administered encounter medications on file as of 04/04/2018. Allergies Allergies Allergen Reactions Chlorthalidone Other (See [...] or anxiety. PHYSICAL EXAM Vital Signs: BP 112/70 (BP Location: Left upper arm, Patient Position: Sitting) | Pulse 58 | Ht 1.626 m (5' 4") | Wt 54.3 kg (119 lb 11.2 oz) | SpO2 98% | BMI 20.55 kg/m GENERAL APPEARANCE: Alert, oriented, cooperative, no [...] LV size and function EF 60-65%. 04/14/2016 ([facility]): TDS, LVEF 65-70%, cardiac chamber dimensions grossly [...] function test with severely decreased perfusion. 3. Loud systolic murmur out of proportion of echocardiogram findings. 4. Cough and shortness of breath. No signs of JVD, lower Ext edema or weight gain. 5. Paroxysmal atrial fibrillation. stopped amiodarone secondary to possible pulmonic side effect. Could not tolerate beta blockers secondary to fatigue and tiredness patient was foun d to have marked bradycardia heart rate will decrease to the 30s. CHADSVASc of 4. 6. Preserved LV function. 7. Hypertension, blood pressure is controlled. 8. Mild mitral regurgitation with no signs of congestive heart failure. Plan: Patient symptoms again improved with another trial of steroids. She has an appointment with pulmonary next week. With the Advair bid. On a previous encounter we did bedside echocardiogram. IVC is collapsing. No more than mild MR. Physical exam findings are out of proportion of echocardiogram, discussed evaluation by tra nsesophageal echocardiogram should be discussed after patient's appointment with Dr. Dereje callahan. BNP was ordered and was only mildly elevated. Amiodarone was stopped for possible pulmonic side effect. 1. Valsartan and was start Losartan secondary to FDA recall, blood pressure is controlled. 2. Continue with anticoagulation. Patient had bleeding [...] | | | | | | [place] [address] | | | | | | [phone] | | | | | | | | +--------+---------+ + + + | 07/11/ | Office | Cardiology | Aris Thayer, | | | 2017 | Visit | | MD Dianna Romero | | | | | | Dr Sanders, | | | | | | [place] [address] | | | | | | [phone] | | | | | | | | +--------+---------+ + + + as of this encounter Visit Diagnoses + + | Diagnosis | + + | Paroxysmal atrial fibrillation (HCC) - Primary | + + | Atrial fibrillation | + + | Coronary artery disease involving knik coronary artery of knik heart without angina | | pectoris | + + | Essential hypertension with goal blood pressure less than 130/80 | + +
--- OUTSIDE RECORDS SUMMARY | ~2018-05-24 | XMS | Clinical Summary ---
Demographics + + + | Address | [address] | | | [place] [address] | + + + | Home Phone | | + + + | Preferred Language | Unknown | + + + | Marital Status | | + + + | Orthodox Affiliation | 1077 | + + + | Race | Unknown | + + + | Ethnic Group | Unknown | + + + Author + + + | Author | [facility] | | | and [place] | + + + | Organization | [facility] | | | and [place] | + + + | Address | Unknown | + + + | Phone | Unavailable | + + + Support + + +---------+ + | Name | Relationship | Address | Phone | + + +---------+ + | ZENOBIA GOMEZ | DHRUV | Unknown | | + + +---------+ + Care Team Providers + +------+ + | Care Order Builder Loader Name | Role | Phone | + +------+ + PP | Unavailable | + +------+ + Allergies Not on File Current Medications Not on file Active Problems Not on file Social History + +-------+ +--------+------+ | Tobacco Use | Types | Packs/Day | Years | Date | | | | | Used | | + +-------+ +--------+------+ | Never Assessed | | | | | + +-------+ +--------+------+ + + + | Sex Assigned at | Date Recorded | | | | + + + | Not on file | | + + + Plan of Treatment + + + + + | Health Maintenance | Due Date | Last Done | Comments | + + + + + | Vaccine: | | | | | Dtap/Tdap/Td (1 - | 3 | | | | Tdap) | | | | + + + + + | Vaccine: Zoster (1 | | | | | of 2) | 4 | | | + + + + + | Vaccine: | | | | | Pneumococcal 65+ | 9 | | | | Low/Medium Risk (1 | | | | | of 2 - PCV13) | | | | + + + + + | Vaccine: Influenza | | | | | (#1) | 8 | | | + + + + + Results Not on filefrom Last 3 Months"
--- OUTSIDE RECORDS SUMMARY | ~2018-05-24 | XMS | Encounter Summary ---
Demographics + + + | Address | [address] | | | [place] [address] | + + + | Home Phone | | + + + | Preferred Language | Unknown | + + + | Marital Status | | + + + | Oriental Orthodox Affiliation | Unknown | + + + | Race | Unknown | + + + | Ethnic Group | Unknown | + + + Author + + + | Author | [facility] | + + + | Organization | [facility] | + + + | Address | Unknown | + + + | Phone | Unavailable | + + + Support + + +---------+ + | Name | Relationship | Address | Phone | + + +---------+ + | Beto Gomez | ECON | Unknown | | + + +---------+ + Care Team Providers + +------+ + | Care Labor Economist Name | Role | Phone | + +------+ + | Diaz Acevedo MD | PCP | | + +------+ + Encounter Details +--------+ + + + + | Date | Type | Department | Care Team | Description | +--------+ + + + + | 04/19/ | Telephone | [facility] | Jennifer Avendaño, | | | 2017 | | Pulmonology [address] | [facility] | | | | | [address] | | | | | | [place] | | | | | | [address] | | | | | | [phone] | | | +--------+ + + + [...] Dr | | | | | | [place] [address] | | | | | | [phone] | | | | | | | | +--------+---------+ + + + | 07/11/ | Office | Cardiology | Aris Curran, | | | 2017 | Visit | | MD Dianna Romero | | | | | | Dr [address], | | | | | | [place] [address] | | | | | | [phone] | | | | | | | | +--------+---------+ + + + as of this encounter Visit Diagnoses Not on filein this encounter"
--- OUTSIDE RECORDS SUMMARY | ~2018-05-24 | XMS | Encounter Summary ---
Demographics + + + | Address | [address] | | | [place] [address] | + + + | Home Phone | | + + + | Preferred Language | Unknown | + + + | Marital Status | | + + + | Adventist Affiliation | Unknown | + + + | Race | Unknown | + + + | Ethnic Group | Unknown | + + + Author + + + | Author | [facility] | + + + | Organization | [facility] | + + + | Address | Unknown | + + + | Phone | Unavailable | + + + Support + + +---------+ + | Name | Relationship | Address | Phone | + + +---------+ + | Beto Gomez | ECON | Unknown | | + + +---------+ + Care Team Providers + +------+ + | Care Can Marker Name | Role | Phone | + +------+ + | Pan Sarabia DO | PCP | | + +------+ + Encounter Details +--------+ + + + + | Date | Type | Department | Care Team | Description | +--------+ + + + + | 02/26/ | Telephone | [facility] | Vianney Cherry | | | 2017 | | Cardiology Wojciech | ZIYAD Subramanian | | | | | [address] | | | | | | [place] | | | | | | [address] | | | | | | [phone] | | | +--------+ + + + [...] Dr | | | | | | [place] [address] | | | | | | [phone] | | | | | | | | +--------+---------+ + + + | 07/11/ | Office | Cardiology | Aris Curran, | | | 2017 | Visit | | MD Dianna Romero | | | | | | Dr [address], | | | | | | [place] [address] | | | | | | [phone] | | | | | | | | +--------+---------+ + + + as of this encounter Visit Diagnoses Not on filein this encounter"
--- OUTSIDE RECORDS SUMMARY | ~2018-05-24 | XMS | Encounter Summary ---
Demographics + + + | Address | [address] | | | [place] [address] | + + + | Home Phone | | + + + | Preferred Language | Unknown | + + + | Marital Status | | + + + | Mormon Affiliation | Unknown | + + + | Race | Unknown | + + + | Ethnic Group | Unknown | + + + Author + + + | Author | [facility] | + + + | Organization | [facility] | + + + | Address | Unknown | + + + | Phone | Unavailable | + + + Support + + +---------+ + | Name | Relationship | Address | Phone | + + +---------+ + | Beto Gomez | ECON | Unknown | | + + +---------+ + Care Team Providers + +------+ + | Care Pain Management Specialist Name | Role | Phone | + +------+ + | Diaz Acevedo MD | PCP | | + +------+ + Encounter Details +--------+ + + + + | Date | Type | Department | Care Team | Description | +--------+ + + + + | 04/21/ | Documentati | [facility] | See, Medical | | | 2018 | on Only | Information | Record | | | | | Management [address] | | | | | | [address] | | | | | | [place] [address] | | | | | | [phone] | | | +--------+ + + + [...] Dr | | | | | | [place] [address] | | | | | | [phone] | | | | | | | | +--------+---------+ + + + | 07/11/ | Office | Cardiology | Aris Curran, | | | 2017 | Visit | | MD Dianna Romero | | | | | | Dr [address], | | | | | | [place] [address] | | | | | | [phone] | | | | | | | | +--------+---------+ + + + as of this encounter Visit Diagnoses Not on filein this encounter"
--- OUTSIDE RECORDS SUMMARY | ~2018-05-24 | XMS | Encounter Summary ---
Demographics + + + | Address | [address] | | | [place] [address] | + + + | Home Phone | | + + + | Preferred Language | Unknown | + + + | Marital Status | | + + + | Anabaptism Affiliation | Unknown | + + + | Race | Unknown | + + + | Ethnic Group | Unknown | + + + Author + + + | Author | [facility] | + + + | Organization | [facility] | + + + | Address | Unknown | + + + | Phone | Unavailable | + + + Support + + +---------+ + | Name | Relationship | Address | Phone | + + +---------+ + | Beto Gomez | ECON | Unknown | | + + +---------+ + Care Team Providers + +------+ + | Care Riffler Tender Name | Role | Phone | + [...] + | 04/30/ | Refill | [facility] [place] | Aris Curran, | Medication Refill | | 2017 | | Cardiology Karen | [address] | | | | | [address] | [address], | | | | | [facility] [address] | [place] [address] | | | | | [place] [address] | [phone] | | | | | [phone] | | | +--------+--------+ + + + [...] | | | | | | [place] [address] | | | | | | [phone] | | | | | | | | +--------+---------+ + + + | 07/11/ | Office | Cardiology | Aris Curran, | | | 2017 | Visit | | MD Dianna Romero | | | | | | Dr [address], | | | | | | [place] [address] | | | | | | [phone] | | | | | | | | +--------+---------+ + + + as of this encounter Visit Diagnoses Not on filein this encounter"
--- OUTSIDE RECORDS SUMMARY | ~2018-05-24 | XMS | Encounter Summary ---
Demographics + + + | Address | [address] | | | [place] [address] | + + + | Home Phone | | + + + | Preferred Language | Unknown | + + + | Marital Status | | + + + | Muslim Affiliation | Unknown | + + + | Race | Unknown | + + + | Ethnic Group | Unknown | + + + Author + + + | Author | [facility] | + + + | Organization | [facility] | + + + | Address | Unknown | + + + | Phone | Unavailable | + + + Support + + +---------+ + | Name | Relationship | Address | Phone | + + +---------+ + | Beto Gomez | ECON | Unknown | | + + +---------+ + Care Team Providers + +------+ + | Care Wheel Shop Supervisor Name | Role | Phone | + [...] | | | | | [place] [address] | | | | | | [phone] | | | +--------+ + + + [...] | | | | | [place] [address] | | | | | | [phone] | | | | | | | | +--------+---------+ + + + | 07/11/ | Office | Cardiology | [place], | | | 2017 | Visit | | MD Dianna Romero | | | | | | Dr [address], | | | | | | [place] [address] | | | | | | [phone] | | | | | | | | +--------+---------+ + + + as of this encounter Visit Diagnoses Not on filein this encounter"
--- OUTSIDE RECORDS SUMMARY | ~2018-05-24 | XMS | Encounter Summary ---
Demographics + + + | Address | [address] | | | [place] [address] | + + + | Home Phone | | + + + | Preferred Language | Unknown | + + + | Marital Status | | + + + | Judaism Affiliation | Unknown | + + + | Race | Unknown | + + + | Ethnic Group | Unknown | + + + Author + + + | Author | [facility] [employer] [facility] | + + + | Organization | [facility] | + + + | Address | Unknown | + + + | Phone | Unavailable | + + + Support + + +---------+ + | Name | Relationship | Address | Phone | + + +---------+ + | Beto Gomez | ECON | Unknown | | + + +---------+ + Care Team Providers + +------+ + | Care Vp Ad Sales West Name | Role | Phone | + +------+ + | Diaz Acevedo MD | PCP | | + +------+ + Encounter Details +--------+ + + + + | Date | Type | Department | Care Team | Description | +--------+ + + + + | 03/28/ | Orders Only | [facility] [place] | Aris Curran, | | | 2017 | | [place] | [address] | | | | | [address] | [address], | | | | | [facility] [address] | [place] [address] | | | | | [place] [address] | [phone] | | | | | [phone] | | | +--------+ + + + [...] | | | | | | [place] [address] | | | | | | [phone] | | | | | | | | +--------+---------+ + + + | 07/11/ | Office | Cardiology | Aris Curran, | | | 2017 | Visit | | MD Dianna Romero | | | | | | Dr [address], | | | | | | [place] [address] | | | | | | [phone] | | | | | | | | +--------+---------+ + + + as of this encounter Visit Diagnoses Not on filein this encounter"
--- OUTSIDE RECORDS SUMMARY | ~2018-05-24 | XMS | Encounter Summary ---
Demographics + + + | Address | [address] | | | [place] [address] | + + + | Home Phone | | + + + | Preferred Language | Unknown | + + + | Marital Status | | + + + | Jainism Affiliation | Unknown | + + + | Race | Unknown | + + + | Ethnic Group | Unknown | + + + Author + + + | Author | [facility] | + + + | Organization | [facility] | + + + | Address | Unknown | + + + | Phone | Unavailable | + + + Support + + +---------+ + | Name | Relationship | Address | Phone | + + +---------+ + | Beto Gomez | ECON | Unknown | | + + +---------+ + Care Team Providers + +------+ + | Care Senior Database Programmer Name | Role | Phone | + [...] + + | 04/10/ | Documentati | [facility] | Soy Braxton, | Other (3-STEP) | | 2018 | on Only | Pulmonology [address] | [address] | | | | | [address] | | | | | | [place] | | | | | | [address] | | | | | | [phone] | | | +--------+ + + + [...] PM PDT3 step testing Oximetry Exercise (code) 51740 1. At rest on room air: Time: [...] Dr | | | | | | [place] [address] | | | | | | [phone] | | | | | | | | +--------+---------+ + + + | 07/11/ | Office | Cardiology | Aris Curran, | | | 2017 | Visit | | MD Dianna Romero | | | | | | Dr [address], | | | | | | [place] [address] | | | | | | [phone] | | | | | | | | +--------+---------+ + + + as of this encounter Visit Diagnoses Not on filein this encounter"
--- OUTSIDE RECORDS SUMMARY | ~2018-05-24 | XMS | Encounter Summary ---
Demographics + + + | Address | [address] | | | [place] [address] | + + + | Home Phone | | + + + | Preferred Language | Unknown | + + + | Marital Status | | + + + | Jewish Affiliation | Unknown | + + + | Race | Unknown | + + + | Ethnic Group | Unknown | + + + Author + + + | Author | [facility] [employer] [facility] | + + + | Organization | [facility] [employer] [facility] | + + + | Address | Unknown | + + + | Phone | Unavailable | + + + Support + + +---------+ + | Name | Relationship | Address | Phone | + + +---------+ + | Beto Gomez | ECON | Unknown | | + + +---------+ + Care Team Providers + +------+ + | Care Patient Support Partner Name | Role | Phone | + +------+ + | Diaz Acevedo MD | PCP | | + +------+ + Encounter Details +--------+ + + + + | Date | Type | Department | Care Team | Description | +--------+ + + + + | 04/21/ | Documentati | [facility] | See, Medical | | | 2018 | on Only | Information | Record | | | | | Management [address] | | | | | | [address] | | | | | | [place] [address] | | | | | | [phone] | | | +--------+ + + + [...] | | | | | | [place] [address] | | | | | | [phone] | | | | | | | | +--------+---------+ + + + | 07/11/ | Office | Cardiology | Aris Curran, | | | 2017 | Visit | | MD Dianna Romero | | | | | | Dr [address], | | | | | | [place] [address] | | | | | | [phone] | | | | | | | | +--------+---------+ + + + as of this encounter Visit Diagnoses Not on filein this encounter"
--- OUTSIDE RECORDS SUMMARY | ~2018-05-24 | XMS | Encounter Summary ---
Demographics + + + | Address | [address] | | | [place] [address] | + + + | Home Phone | | + + + | Preferred Language | Unknown | + + + | Marital Status | | + + + | Voodoo Affiliation | Unknown | + + + | Race | Unknown | + + + | Ethnic Group | Unknown | + + + Author + + + | Author | [facility] [employer] [facility] | + + + | Organization | [facility] | + + + | Address | Unknown | + + + | Phone | Unavailable | + + + Support + + +---------+ + | Name | Relationship | Address | Phone | + + +---------+ + | Beto Gomez | ECON | Unknown | | + + +---------+ + Care Team Providers + +------+ + | Care Plant Health Manager Name | Role | Phone | [...] Description | +--------+--------+ + + + | 05/22/ | Refill | [facility] | Vianney Cherry | Medication Refill | | 2017 | | Cardiology Maulik Subramanian CMA | | | | | [address] | | | | | | [place] | | | | | | [address] | | | | | | [phone] | | | +--------+--------+ + + + [...] | | | | | [place] [address] | | | | | | [phone] | | | | | | | | +--------+---------+ + + + | 07/11/ | Office | Cardiology | Aris Curran, | | | 2017 | Visit | | MD Dianna Romero | | | | | | Dr [address], | | | | | | [place] [address] | | | | | | [phone] | | | | | | | | +--------+---------+ + + + as of this encounter Visit Diagnoses Not on filein this encounter"
--- OUTSIDE RECORDS SUMMARY | ~2018-05-24 | XMS | Clinical Summary ---
Demographics + + + | Address | [address] | | | [place] [address] | + + + | Home Phone | | + + + | Preferred Language | Unknown | + + + | Marital Status | | + + + | Hindu Affiliation | Unknown | + + + | Race | Unknown | + + + | Ethnic Group | Unknown | + + + Author + + + | Author | [facility] | + + + | Organization | [facility] | + + + | Address | Unknown | + + + | Phone | Unavailable | + + + Support + + +---------+ + | Name | Relationship | Address | Phone | + + +---------+ + | Beto Gomez | ECON | Unknown | | + + +---------+ + Care Team Providers + +------+ + | Care Header Setup Operator Name | Role | Phone | [...] + + + Current Medications + + + +---------+------+------+-------+ | Prescription | Sig. | Disp. | Refills | Star | End | Statu | | | | | | t | Date | s | | | | | | Date | | | + + + +---------+------+------+-------+ | Magnesium 250 MG | Take 250 mg by mouth | | | | | Activ | | TABS tablet | daily. | | | | | e | + + + +---------+------+------+-------+ | aspirin 81 MG EC | Take 81 mg by mouth | | | | | Activ | | tablet | daily with | | | | | e | | | breakfast. | | | | | | + + + +---------+------+------+-------+ | Acetaminophen | Take by mouth as | | | | | Activ | | (TYLENOL 8 HOUR PO) | needed. | | | | | e | + + + +---------+------+------+-------+ | | Inhale 1 puff into | 1 each | 0 | 07/2 | | Activ | | fluticasone-salmeter | the lungs 2 (two) | | | 0/20 | | e | | ol (ADVAIR) 500-50 | times daily. | | | 18 | | | | MCG/DOSE diskus | | | | | | | | inhaler | | | | | | | + + + +---------+------+------+-------+ | albuterol | Inhale 2 puffs into | | | | | Activ | | (PROVENTIL | the lungs every 4 | | | | | e | | HFA;VENTOLIN HFA) | (four) hours as | | | | | | | 108 (90 Base) | needed for Wheezing. | | | | | | | MCG/ACT inhaler | | | | | | | + + + +---------+------+------+-------+ | albuterol | Take 2.5 mg by | | | | | Activ | | (PROVENTIL) (2.5 | nebulization every 8 | | | | | e | | MG/3ML) 0.083% | (eight) hours as | | | | | | | nebulizer solution | needed for Wheezing. 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 | | | | | | + + + +---------+------+------+-------+ | amLODIPine | Take 1 tablet by | 90 | 1 | 08/2 | 08/2 | Activ | | (NORVASC) 5 MG | mouth daily. | tablet | | 03/23 | 7 | e | | tablet | | | | 18 | 19 | | + + + +---------+------+------+-------+ | losartan (COZAAR) | Take 1 tablet by | 90 | 1 | 08/2 | 08/2 | Activ | | 100 MG tablet | mouth daily. | tablet | | /20 | 720 | e | | | | | | 18 | 19 | | + + + +---------+------+------+-------+ | losartan (COZAAR) | take 1 tablet by | 60 | 0 | 09/0 | | Activ | | 100 MG tablet | mouth once daily | tablet | | 9/20 | | e | | | | | | 18 | | | + + + +---------+------+------+-------+ | amLODIPine | take 1 tablet by | 90 | 1 | 09/0 | | Activ | | (NORVASC) 5 MG | mouth once daily | tablet | | 9/20 | | e | | tablet | | | | 18 | | | + + + +---------+------+------+-------+ | apixaban (ELIQUIS) | Take 1 tablet by | 180 | 2 | 09/1 | | Activ | | 2.5 MG tablet | mouth 2 (two) times | tablet | | 8/20 | | e | | | daily. | | | 18 | | | + + + +---------+------+------+-------+ | amLODIPine | Take 1 tablet by | 90 | 1 | 03/0 | 08/2 | Disco | | (NORVASC) 5 MG | mouth daily. | tablet | | 7/20 | 7/20 | ntinu | | tablet | | | | 18 | 18 | ed | + + + +---------+------+------+-------+ | apixaban (ELIQUIS) | Take 1 tablet by | 60 | 2 | 07/2 | 05/05 | Disco | | 2.5 MG tablet | mouth 2 (two) times | tablet | | 0/20 | 8/20 | ntinu | | | daily. | | | 18 | 18 | ed | + + + +---------+------+------+-------+ | losartan (COZAAR) | Take 1 tablet by | 60 | 0 | 07/2 | 08/2 | Disco | | 100 MG tablet | mouth daily. 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 | | heart with angina [...] | noLast Cath: 1991Last Echo, 04/14/2016 ([facility]): TDS, LVEF | | 65-70%, cardiac chamber [...] | +--------+ + + + + | 05/22/ | Refill | | Vianney Cherry | Medication Refill | | 2017 | | | ZIYAD Subramanian | | +--------+ + + + + | 05/12/ | Refill | | Aris Curran, | Medication Refill | | 2017 | | | | | +--------+ + + + + | 04/30/ | Refill | | Kassy, | Medication Refill | | 2017 | | | CHRISTOPH Irizarry | | +--------+ + + + + | 04/30/ | Refill | | Aris Curran, | Medication Refill | | 2018 | | | MD | | +--------+ + + + + | 04/21/ | Documentati | | See, Medical | | | 2018 | on Only | | Record | | +--------+ + + + + | 04/19/ | Telephone | | Jennifer Avendaño, | | | 2018 | | | LITHOGRAPHIC ETCHER | | +--------+ + + + + 04/12/ | Refill | | Jennifer Avendaño, | Shortness of breath | | 2017 | | | LITHOGRAPHIC ETCHER | (Primary Dx); Acute | | | | | | pneumonitis; | | | | | | 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 | +--------+ + + + + | 04/10/ | Office | | Luis Fernando, | 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, | 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); | | | | | | 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; | | | | | | 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 | +--------+ + + + + | 04/10/ | Documentati | | Soy Braxton, | Other (3-STEP) | | 2017 | on Only | | [place] | | +--------+ + + + + | 04/04/ | Office | | Aris Curran, | Paroxysmal atrial | | 2018 | Visit | | MD | fibrillation (HCC) | | | | | | (Primary Dx); | | | | | | 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 | | | | | | artery of [place] | | | | | | heart without angina | | | | | | pectoris; Essential | | | | | | hypertension with | | | | | | goal blood pressure | | | | | | less than 130/80 | +--------+ + + + + | 03/29/ | Documentati | | Vianney Cherry | Other ([facility] | | 2017 | on Only | | ZIYAD Subramanian | Records) | +--------+ + + + + | 03/28/ | Refill | | Vianney Cherry | Medication Refill | | 2017 | | | ZIYAD Subramanian | | +--------+ + + + + | 03/28/ | Orders Only | | Aris Curran, | | | 2017 | | | MD | | +--------+ + + + + | 03/23/ | Office | | Aris Curran, | Coronary artery | | 2018 | Visit | | MD | 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 | | 2017 | on Only | | LITHOGRAPHIC ETCHER | PFT Results) | +--------+ + + + + | 02/26/ | Telephone | | Vianney Cherry | | | 2018 | | | ZIYAD Subramanian | | +--------+ + + + + | 02/22/ | Orders Only | | Vianney Lim | At risk for | | 2017 | | | Robyn | amiodarone toxicity | | | | | | with senior care use | +--------+ + + + + | 02/21/ | Marilee | | Vianney Cherry | Other (chest xray) [...] PM PDT | + + + + Plan of Treatment +--------+---------+ + + + | Date | Type | Specialty | Care Team | Description | +--------+---------+ + + + | 06/01/ | Office | | Luis Fernando, | | | 2017 | Visit | | Manasa Miles, | | | | | | [address] | | | | | | [place] [address] | | | | | | [phone] | | | | | | | | +--------+---------+ + + + | 07/11/ | Office | | MichaAris rowland, | | | 2017 | Visit | | [address] | | | | | | Dr [place], | | | | | | [place] [address] | | | | | | [phone] | | | | | | | [...] +------+-------+ + | MEDICARE | MEDICA | [id number] | | | [address] | | | RE | | | | [place] [address] | | | IP-OP | | | | | + +--------+ +------+-------+ + | PREMERA | PREMER | [id number] | | | [address] [address] | | | A BLUE | | | | [place], [place] | | | CROSS | | | | [address] | | | FED | | | [...] | [birth year] | Home: | [address] | | | nelda/Nathaniel | | 1935 | [phone] [place] [address] | | | ashli | | | [phone] | | + +--------+ +--------+ + +
--- OUTSIDE RECORDS SUMMARY | ~2018-05-24 | XMS | Encounter Summary ---
Demographics + + + | Address | [address] | | | [place] [address] | + + + | Home Phone | | + + + | Preferred Language | Unknown | + + + | Marital Status | | + + + | Church Affiliation | Unknown | + + + | Race | Unknown | + + + | Ethnic Group | Unknown | + + + Author + + + | Author | [facility] | + + + | Organization | [facility] | + + + | Address | Unknown | + + + | Phone | Unavailable | + + + Support + + +---------+ + | Name | Relationship | Address | Phone | + + +---------+ + | Beto Gomez | ECON | Unknown | | + + +---------+ + Care Team Providers + +------+ + | Care Marine Animal Trainer Name | Role | Phone | [...] Description | +--------+--------+ + + + | 03/28/ | Refill | [facility] | Vianney Cherry | Medication Refill | | 2017 | | Cardiology Karen Subramanian CMA | | | | | [address] | | | | | | [address] | | | | | | [place] [address] | | | | | | [phone] | | | +--------+--------+ + + + [...] | | | | | [place] [address] | | | | | | [phone] | | | | | | | | +--------+---------+ + + + | 07/11/ | Office | Cardiology | Bina Debbiemanda, | | | 2017 | Visit | | MD Dianna Romero | | | | | | Dr [address], | | | | | | [place] [address] | | | | | | [phone] | | | | | | | | +--------+---------+ + + + as of this encounter Visit Diagnoses Not on filein this encounter"
--- OUTSIDE RECORDS SUMMARY | ~2018-05-24 | XMS | Encounter Summary ---
Demographics + + + | Address | [address] | | | [place] [address] | + + + | Home Phone | | + + + | Preferred Language | Unknown | + + + | Marital Status | | + + + | Confucianist Affiliation | Unknown | + + + | Race | Unknown | + + + | Ethnic Group | Unknown | + + + Author + + + | Author | [facility] | + + + | Organization | [facility] | + + + | Address | Unknown | + + + | Phone | Unavailable | + + + Support + + +---------+ + | Name | Relationship | Address | Phone | + + +---------+ + | Beto Gomez | ECON | Unknown | | + + +---------+ + Care Team Providers + +------+ + | Care Spray Blender Name | Role | Phone | + +------+ + | Pan Sarabia DO | PCP | | + +------+ + Reason for Visit +--------+ + | Reason | Comments | +--------+ + | Other | [facility] PFT Results | +--------+ + Encounter Details +--------+ + + + + | Date | Type | Department | Care Team | Description | +--------+ + + + + | 03/12/ | Documentati | [facility] | Leslye Verdin, | Other ([facility] | | 2018 | on Only | Ny Jeffrey | ZIYAD | PFT Results) | | | | [address] | | | | | | [place] | | | | | | [address] | | | | | | [phone] | | | +--------+ + + + [...] | | | | | [place] [address] | | | | | | [phone] | | | | | | | | +--------+---------+ + + + | 07/11/ | Office | Cardiology | Aris Curran, | | | 2017 | Visit | | MD Dianna Romero | | | | | | Dr [address], | | | | | | [place] [address] | | | | | | [phone] | | | | | | | | +--------+---------+ + + + as of this encounter Visit Diagnoses Not on filein this encounter"
--- OUTSIDE RECORDS SUMMARY | ~2018-05-24 | XMS | Encounter Summary ---
Demographics + + + | Address | [address] | | | [place] [address] | + + + | Home Phone | | + + + | Preferred Language | Unknown | + + + | Marital Status | | + + + | Mormonism Affiliation | Unknown | + + + | Race | Unknown | + + + | Ethnic Group | Unknown | + + + Author + + + | Author | [facility] | + + + | Organization | [facility] | + + + | Address | Unknown | + + + | Phone | Unavailable | + + + Support + + +---------+ + | Name | Relationship | Address | Phone | + + +---------+ + | Beto Gomez | ECON | Unknown | | + + +---------+ + Care Team Providers + +------+ + | Care Electrical Maintenance Worker Name | Role | Phone | [...] [address], | | | | | [address] | [place] [address] | | | | | [place] [address] | [phone] | | | | | [phone] | | | +--------+ + + + [...] | | | | | | [place] [address] | | | | | | [phone] | | | | | | | | +--------+---------+ + + + | 07/11/ | Office | Cardiology | Aris Curran, | | | 2017 | Visit | | MD Dianna Romero | | | | | | Dr [address], | | | | | | [place] [address] | | | | | | [phone] | | | | | | | | +--------+---------+ + + + as of this encounter Visit Diagnoses Not on filein this encounter"
--- OUTSIDE RECORDS SUMMARY | ~2018-05-24 | XMS | Encounter Summary ---
Demographics + + + | Address | [address] | | | [place] [address] | + + + | Home Phone | | + + + | Preferred Language | Unknown | + + + | Marital Status | | + + + | Restorationism Affiliation | Unknown | + + + | Race | Unknown | + + + | Ethnic Group | Unknown | + + + Author + + + | Author | [facility] | + + + | Organization | [facility] | + + + | Address | Unknown | + + + | Phone | Unavailable | + + + Support + + +---------+ + | Name | Relationship | Address | Phone | + + +---------+ + | Beto Gomez | ECON | Unknown | | + + +---------+ + Care Team Providers + +------+ + | Care Equipment Processer Storage Name | Role | Phone | + [...] | Specialty | Pulmonary | Diagnoses | [place], | Luis Fernando, | | | Services | Disease / | Chronic | MD Aris | Manasa | | | Required | Pulmonology | cough | [address] | MD Ginger | | | | | Shortness of | [address] | [address] | | | | | breath | [address] | Dr | | | | | Essential | [place], [place] | [place] | | | | | hypertension | [address] | [address] Phone: | | | | | with goal | Phone: | [phone] | | | | | blood | [phone] | Fax: | | | | | pressure | Fax: | [phone] | | | | | less than | [phone] | | | | | | 130/80 [...] + + | 03/23/ | Office | [facility] | Aris Thayer, | Coronary artery | | 2018 | Visit | Cardiology Karen | [address] | disease involving | | | | [address] | [address], | [place] coronary | | | | [address] | [place] [address] | artery of [place] | | | | [place] [address] | [phone] | heart without angina | | | | [phone] | | pectoris (Primary | | | [...] LV size and function EF 60-65%. 04/14/2016 ([facility]'): TDS, LVEF 65-70%, cardiac chamber dimensions grossly [...] have symptoms of cough and shortness breath. [place] intermittently kina r with Medrol pack course. 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
--- OUTSIDE RECORDS SUMMARY | ~2018-05-24 | XMS | Encounter Summary ---
Demographics + + + | Address | [address] | | | [place] [address] | + + + | Home Phone [...] + + + | Author | [facility] | + + + | Organization | [facility] | + + + | Address | Unknown | + + + | Phone | Unavailable | + + + Support + + +---------+ + | Name | Relationship | Address | Phone | + + +---------+ + | Beto Gomez | ECON | Unknown | | + + +---------+ + Care Team Providers + +------+ + | Care School Age Lead Teacher Name | Role | Phone | + +------+ + | Diaz Acevedo MD | PCP | | + +------+ + Encounter Details +--------+--------+ + + + | Date | Type | Department | Care Team | Description | +--------+--------+ + + + | 04/12/ | Refill | [facility] | Jennifer Avendaño, | Shortness of breath | | 2018 | | Pulmonology [address] | COMPLEX MANAGER | (Primary Dx); Acute | | | | [address] | | pneumonitis; | | | | [place] | | 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
--- OUTSIDE RECORDS SUMMARY | ~2018-05-24 | XMS | Encounter Summary ---
Demographics + + + | Address | [address] | | | [place] [address] | + + + | Home Phone | | + + + | Preferred Language | Unknown | + + + | Marital Status | | + + + | Lutheran Affiliation | Unknown | + + + | Race | Unknown | + + + | Ethnic Group | Unknown | + + + Author + + + | Author | [facility] | + + + | Organization | [facility] | + + + | Address | Unknown | + + + | Phone | Unavailable | + + + Support + + +---------+ + | Name | Relationship | Address | Phone | + + +---------+ + | Beto Gomez | ECON | Unknown | | + + +---------+ + Care Team Providers + +------+ + | Care Brazer Repair And Salvage Name | Role | Phone | + [...] [place] | | | | | | [address] | | | | | | [phone] | | | +--------+--------+ + + + [...] | | | | | [place] [address] | | | | | | [phone] | | | | | | | | +--------+---------+ + + + | 07/11/ | Office | Cardiology | Aris Curran, | | | 2017 | Visit | | MD Dianna Romero | | | | | | Dr [address], | | | | | | [place] [address] | | | | | | [phone] | | | | | | | | +--------+---------+ + + + as of this encounter Visit Diagnoses Not on filein this encounter"
--- OUTSIDE RECORDS SUMMARY | ~2018-05-24 | XMS | Encounter Summary ---
Demographics + + + | Address | [address] | | | [place] [address] | + + + | Home Phone | | + + + | Preferred Language | Unknown | + + + | Marital Status | | + + + | Lutheran Affiliation | Unknown | + + + | Race | Unknown | + + + | Ethnic Group | Unknown | + + + Author + + + | Author | [facility] | + + + | Organization | [facility] | + + + | Address | Unknown | + + + | Phone | Unavailable | + + + Support + + +---------+ + | Name | Relationship | Address | Phone | + + +---------+ + | Beto Gomez | ECON | Unknown | | + + +---------+ + Care Team Providers + +------+ + | Care Network Technology Instructor Name | Role | Phone | + [...] [place] | | | | | | [address] | | | | | | [phone] | | | +--------+ + + + [...] | | | | | [place] [address] | | | | | | [phone] | | | | | | | | +--------+---------+ + + + | 07/11/ | Office | Cardiology | Aris Curran, | | | 2017 | Visit | | MD Dianna Romero | | | | | | Dr [address], | | | | | | [place] [address] | | | | | | [phone] | | | | | | | | +--------+---------+ + + + as of this encounter Visit Diagnoses Not on filein this encounter"
--- OUTSIDE RECORDS SUMMARY | ~2018-05-24 | XMS | Clinical Summary ---
Demographics + + + | Address | [address] | | | [place] [address] | + + + | Home Phone | | + + + | Preferred Language | Unknown | + + + | Marital Status | | + + + | Mormonism Affiliation | 1077 | + + + | Race | Unknown | + + + | Ethnic Group | Unknown | + + + Author + + + | Author | [facility] | | | and [place] | + + + | Organization | [facility] | | | and [place] | [...] Team Providers + +------+ + | Care Installation Drafter Name | Role | Phone | + [...]
--- OUTSIDE RECORDS SUMMARY | ~2018-05-24 | XMS | Encounter Summary ---
Demographics + + + | Address | [address] | | | [place] [address] | + + + | Home Phone | | + + + | Preferred Language | Unknown | + + + | Marital Status | | + + + | Judaism Affiliation | Unknown | + + + | Race | Unknown | + + + | Ethnic Group | Unknown | + + + Author + + + | Author | [facility] [facility] | + + + | Organization | [facility] | + + + | Address | Unknown | + + + | Phone | Unavailable | + + + Support + + +---------+ + | Name | Relationship | Address | Phone | + + +---------+ + | Beto Gomez | ECON | Unknown | | + + +---------+ + Care Team Providers + +------+ + | Care Senior Interaction Designer Name | Role | Phone | + [...] + | 04/04/ | Office | [facility] | Aris Thayer, | Paroxysmal atrial | | 2018 | Visit | Cardiology Karen | [address] | fibrillation (HCC) | | | | [address] | [address], | (Primary Dx); | | | | [facility] [address] | [place] [address] | Coronary artery | | | | [place] [address] | [phone] | disease involving | | | | [phone] | | [place] coronary | | | | | | artery of [place] | | | | | | heart [...] | | | | | | [place] [address] | | | | | | [phone] | | | | | | | | +--------+---------+ + + + | 07/11/ | Office | Cardiology | Aris Thayer, | | | 2017 | Visit | | MD Dianna Romero | | | | | | Dr [place], | | | | | | [place] [address] | | | | | | [phone] | | | | | | | | +--------+---------+ + + + as of this encounter Visit Diagnoses + + | Diagnosis | + + | Paroxysmal atrial fibrillation (HCC) - Primary | + + | Atrial fibrillation | + + | 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
--- OUTSIDE RECORDS SUMMARY | ~2018-05-24 | XMS | Encounter Summary ---
Demographics + + + | Address | [address] | | | [place] [address] | + + + | Home Phone | | + + + | Preferred Language | Unknown | + + + | Marital Status | | + + + | Anabaptist Affiliation | Unknown | + + + | Race | Unknown | + + + | Ethnic Group | Unknown | + + + Author + + + | Author | [facility] [employer] [facility] | + + + | Organization | [facility] | + + + | Address | Unknown | + + + | Phone | Unavailable | + + + Support + + +---------+ + | Name | Relationship | Address | Phone | + + +---------+ + | Beto Gomez | ECON | Unknown | | + + +---------+ + Care Team Providers + +------+ + | Care Disability Rater Name | Role | Phone | + [...] + | 03/28/ | Refill | [facility] | Vianney Cherry | Medication Refill | | 2017 | | Cardiology Karen Subramanian CMA | | | | | [address] | | | | | | [address] | | | | | | [place] [address] | | | | | | [phone] | | | +--------+--------+ + + + [...] | | | | | [place] [address] | | | | | | [phone] | | | | | | | | +--------+---------+ + + + | 07/11/ | Office | Cardiology | Bina Debbiemanda, | | | 2017 | Visit | | MD Dianna Romero | | | | | | Dr [address], | | | | | | [place] [address] | | | | | | [phone] | | | | | | | | +--------+---------+ + + + as of this encounter Visit Diagnoses Not on filein this encounter"
--- OUTSIDE RECORDS SUMMARY | ~2018-05-24 | XMS | Encounter Summary ---
Demographics + + + | Address | [address] | | | [place] [address] | + + + | Home Phone | | + + + | Preferred Language | Unknown | + + + | Marital Status | | + + + | Tenriism Affiliation | Unknown | + + + | Race | Unknown | + + + | Ethnic Group | Unknown | + + + Author + + + | Author | [facility] | + + + | Organization | [facility] | + + + | Address | Unknown | + + + | Phone | Unavailable | + + + Support + + +---------+ + | Name | Relationship | Address | Phone | + + +---------+ + | Beto Gomez | ECON | Unknown | | + + +---------+ + Care Team Providers + +------+ + | Care Electrician Master Name | Role | Phone | + [...] [place] | | | | | | [address] | | | | | | [phone] | | | +--------+ + + + [...] Dr | | | | | | [place] [address] | | | | | | [phone] | | | | | | | | +--------+---------+ + + + | 07/11/ | Office | Cardiology | Aris Curran, | | | 2017 | Visit | | MD Dianna Romero | | | | | | Dr [address], | | | | | | [place] [address] | | | | | | [phone] | | | | | | | | +--------+---------+ + + + as of this encounter Visit Diagnoses Not on filein this encounter"
--- OUTSIDE RECORDS SUMMARY | ~2018-05-24 | XMS | Encounter Summary ---
Demographics + + + | Address | [address] | | | [place] [address] | + + + | Home Phone | | + + + | Preferred Language | Unknown | + + + | Marital Status | | + + + | Church Affiliation | Unknown | + + + | Race | Unknown | + + + | Ethnic Group | Unknown | + + + Author + + + | Author | [facility] | + + + | Organization | [facility] | + + + | Address | Unknown | + + + | Phone | Unavailable | + + + Support + + +---------+ + | Name | Relationship | Address | Phone | + + +---------+ + | Beto Gomez | ECON | Unknown | | + + +---------+ + Care Team Providers + +------+ + | Care Gunner'S Mate G Name | Role | Phone | + +------+ + | Pan Sarabia DO | PCP | | + +------+ + Reason for Visit +--------+ + | Reason | Comments | +--------+ + | Other | [facility] PFT Results | +--------+ + Encounter Details [...] [place] | | | | | | [address] | | | | | | [phone] | | | +--------+ + + + [...] | | | | | [place] [address] | | | | | | [phone] | | | | | | | | +--------+---------+ + + + | 07/11/ | Office | Cardiology | Aris Curran, | | | 2017 | Visit | | MD Dianna Romero | | | | | | Dr [address], | | | | | | [place] [address] | | | | | | [phone] | | | | | | | | +--------+---------+ + + + as of this encounter Visit Diagnoses Not on filein this encounter"
--- OUTSIDE RECORDS SUMMARY | ~2018-05-24 | XMS | Clinical Summary ---
Demographics + + + | Address | [address] | | | [place] [address] | + + + | Home Phone | | + + + | Preferred Language | Unknown | + + + | Marital Status | | + + + | Sikhism Affiliation | Unknown | + + + | Race | Unknown | + + + | Ethnic Group | Unknown | + + + Author + + + | Author | [facility] | + + + | Organization | [facility] | + + + | Address | Unknown | + + + | Phone | Unavailable | + + + Support + + +---------+ + | Name | Relationship | Address | Phone | + + +---------+ + | Beto Gomez | ECON | Unknown | | + + +---------+ + Care Team Providers + +------+ + | Care Health Care Facilities Inspector Name | Role | Phone | [...] + + + + | Overview: The NV interval was 230 ms on April 20, [...] 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 | 04/06/2016 | | heart with angina [...] | noLast Cath: 1991Last Echo, 04/14/2016 ([facility]): TDS, LVEF | | 65-70%, cardiac chamber [...] | | | 2018 | | | BARYTES GRINDER | | +--------+ + + + + 04/12/ | Refill | | Jennifer Avendaño, | Shortness of breath | | 2017 | | | BARYTES GRINDER | (Primary Dx); Acute | | | [...] | 04/10/ | Documentati | | Soy Barxton, | Other (3-STEP) | | 2017 | [...] involving | | | | | | qagan tayagungin coronary | | | | | | artery of qagan tayagungin | | | | | | heart [...] involving | | | | | | qagan tayagungin coronary | | | | | | artery of qagan tayagungin | | | | | | heart [...] | 2017 | on Only | | BARYTES GRINDER | PFT Results) | +--------+ + + + + | 02/26/ | Telephone | | Vianney Cherry | | | 2018 | | | ZIYAD Subramanian | | +--------+ + + + + | 02/22/ | Orders Only | | Vianney Lim | At risk for | | 2017 | | | Robyn | amiodarone toxicity | | | | | | with fpc use | +--------+ + + + + [...] Miladys | | | | | | [place] [address] | | | | | | [phone] | | | | | | | | +--------+---------+ + + + | 07/11/ | Office | | MichaAris rowland, | | | 2017 | Visit | | [address] | | | | | | Dr [address], | | | | | | [place] [id number] | | | | | | [phone] | | | | | | | [...] +------+-------+ + | MEDICARE | MEDICA | [id number] | | | [address] | | | RE | | | | [place] [address] | | | IP-OP | | | | | + +--------+ +------+-------+ + | PREMERA | PREMER | [id number] | | | [address] [address] | | | A BLUE | | | | [place], [place] | | | CROSS | | | | [address] | | | FED | | | [...] | 1935 | [phone] | [place] [address] | | | ashli | | | [phone] | | + +--------+ +--------+ + +
--- OUTSIDE RECORDS SUMMARY | ~2018-05-24 | XMS | Encounter Summary ---
Demographics + + + | Address | [address] | | | [place] [address] | + + + | Home Phone | | + + + | Preferred Language | Unknown | + + + | Marital Status | | + + + | Catholic Affiliation | Unknown | + + + | Race | Unknown | + + + | Ethnic Group | Unknown | + + + Author + + + | Author | [facility] | + + + | Organization | [facility] | + + + | Address | Unknown | + + + | Phone | Unavailable | + + + Support + + +---------+ + | Name | Relationship | Address | Phone | + + +---------+ + | Beto Gomez | ECON | Unknown | | + + +---------+ + Care Team Providers + +------+ + | Care Doorshaker Name | Role | Phone | + [...] + | 05/12/ | Refill | [facility] | Aris Curran, | Medication Refill | | 2017 | | Cardiology Karen | [address] | | | | | [address] | [address], | | | | | [facility] [address] | [place] [address] | | | | | [place] [address] | [phone] | | | | | [phone] | | | +--------+--------+ + + + [...] | | | | | [place] [address] | | | | | | [phone] | | | | | | | | +--------+---------+ + + + | 07/11/ | Office | Cardiology | Aris Curran, | | | 2017 | Visit | | MD Dianna Romero | | | | | | Dr [address], | | | | | | [place] [address] | | | | | | [phone] | | | | | | | | +--------+---------+ + + + as of this encounter Visit Diagnoses Not on filein this encounter"
--- OUTSIDE RECORDS SUMMARY | ~2018-05-24 | XMS | Encounter Summary ---
Demographics + + + | Address | [address] | | | [place] [address] | + + + | Home Phone | | + + + | Preferred Language | Unknown | + + + | Marital Status | | + + + | Muslim Affiliation | Unknown | + + + | Race | Unknown | + + + | Ethnic Group | Unknown | + + + Author + + + | Author | [facility] | + + + | Organization | [facility] | + + + | Address | Unknown | + + + | Phone | Unavailable | + + + Support + + +---------+ + | Name | Relationship | Address | Phone | + + +---------+ + | Beto Gomez | ECON | Unknown | | + + +---------+ + Care Team Providers + +------+ + | Care Digital Performance Analyst Name | Role | Phone | + +------+ + | Pan Sarabia DO | PCP | | + +------+ + Encounter Details +--------+ + + + + | Date | Type | Department | Care Team | Description | +--------+ + + + + | 02/22/ | Orders Only | [facility] | Vianney Lim | At risk for | | 2017 | | [facility] | Robyn | amiodarone toxicity | | | | [id number] | | with buttermaker continuous churn use | | | | [place], | | | | | | [place] [address] | | | | | | [phone] | | | +--------+ + + + [...] Dr | | | | | | [place] [address] | | | | | | [phone] | | | | | | | | +--------+---------+ + + + | 07/11/ | Office | Cardiology | Aris Curran, | | | 2017 | Visit | | MD Dianna Romero | | | | | | Dr [address], | | | | | | [place] [address] | | | | | | [phone] | | | | | | | | +--------+---------+ + + + as of this encounter Visit Diagnoses + + | Diagnosis | + + | 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
--- OUTSIDE RECORDS SUMMARY | ~2018-05-24 | XMS | Encounter Summary ---
Demographics + + + | Address | [address] | | | [place] [address] | + + + | Home Phone | | + + + | Preferred Language | Unknown | + + + | Marital Status | | + + + | Yazdanism Affiliation | Unknown | + + + | Race | Unknown | + + + | Ethnic Group | Unknown | + + + Author + + + | Author | [facility] | + + + | Organization | [facility] | + + + | Address | Unknown | + + + | Phone | Unavailable | + + + Support + + +---------+ + | Name | Relationship | Address | Phone | + + +---------+ + | Beto Gomez | ECON | Unknown | | + + +---------+ + Care Team Providers + +------+ + | Care Assurance Services Manager Health Care Name | Role | Phone | + +------+ + | Diaz Acevedo MD | PCP | | + +------+ + Encounter Details +--------+ + + + + | Date | Type | Department | Care Team | Description | +--------+ + + + + | 04/19/ | Telephone | [facility] | Jennifer Avendaño, | | | 2017 | | Pulmonology [address] | [facility] | | | | | [address] | | | | | | [place] | | | | | | [address] | | | | | | [phone] | | | +--------+ + + + [...] Dr | | | | | | [place] [address] | | | | | | [phone] | | | | | | | | +--------+---------+ + + + | 07/11/ | Office | Cardiology | Aris Curran, | | | 2017 | Visit | | MD Dianna Romero | | | | | | Dr [address], | | | | | | [place] [address] | | | | | | [phone] | | | | | | | | +--------+---------+ + + + as of this encounter Visit Diagnoses Not on filein this encounter"
[~2018-05-24 13:53] MED LIST changes: +ASPIR-LOW81 MG PO; +IPRAT-ALBUT 0.5-3 ML INH
[2018-05-24] MEDS ORDERED: ELIQUIS2.5 MG PO (15:09)
[2018-05-24] MEDS ORDERED: CIPRO500 MG PO (19:15)
[2018-05-24] MEDS ORDERED: ENULOSE10 GM/15 M PO (19:15)
== END 2018-05-24 19:34 | disposition home or self-care (01) ==
LOC: ED 13:53
DX: K62.89 Other specified diseases of anus and rectum (principal); I25.2 Old myocardial infarction; Z88.5 Allergy status to narcotic agent; Z88.2 Allergy status to sulfonamides; Z88.1 Allergy status to other antibiotic agents; Z79.899 Other long term (current) drug therapy
CPT/HCPCS: 74177; 80053; 81001; 83690; 85025; 96360; 96361; 99284; J7030; Q9967

== ENCOUNTER 2019-01-19 10:31 | Emergency (ER) | payer MEDICARE, BC ==
[~2019-01-19] VITALS: Ht 160 cm; Wt 54.4 kg
--- OUTSIDE RECORDS SUMMARY | ~2019-01-19 | XMS | Clinical Summary ---
Demographics + + + | Address | [address] | | | [place] [address] | + + + | Home Phone | | + + + | Preferred Language | Unknown | + + + | Marital Status | | + + + | Uatsdin Affiliation | Unknown | + + + | Race | White | + + + | Ethnic Group | Not or | + + + Author + + + | Author | [facility] | + + + | Organization | [facility] | + + + | Address | Unknown | + + + | Phone | Unavailable | + + + Support + + + + + | Name | Relationship | Address | Phone | + + + + + | Beto Gomez | ECON | [address] | | | | | [place] | | | | | [address] | | + + + + + Care Team Providers + +------+ + | Care Jacker Name | Role | Phone | + +------+ + | Diaz Acevedo MD | PP | | + +------+ + Source Comments SAMEER is fully live on both EpicCare Ambulatory and EpicCare InPatient.[facility] Allergies + + + + + + | Active Allergy | Reactions | Severity | Noted | Comments | | | | | Date | | + + + + + + | Cephalexin | Stomach Upset | Low | 04/20/20 | | | | | | 17 | | + + + + + + | Chlorthalidone | Unknown | Medium | 04/20/20 | Very low sodium, | | | | | 17 | felt weak | + + + + + + | Hydrocodone-Acetamin | Rash | Medium | 04/20/20 | Not sure, confused | | ophen | | | 17 | and rash | + + + + + + | Oxycodone | Rash | Medium | 04/20/20 | | | | | | 17 | | + + + + + + | Sulfasalazine | Rash | Medium | 04/06/20 | | | | | | 16 | | + + + + + + Medications + + + +---------+------+------+-------+ | Medication | Sig | Dispensed | Refills | Star | End | Statu | | | | | | t | Date | s | | | | | | Date | | | + + + +---------+------+------+-------+ | losartan 100 mg | | | 0 | 11/0 | | Activ | | oral tablet | | | | 7/20 | | e | | | | | | 18 | | | + + + +---------+------+------+-------+ | ELIQUIS 2.5 mg | | | 0 | 11/2 | | Activ | | oral tablet | | | | 5/20 | | e | | | | | | 18 | | | + + + +---------+------+------+-------+ | amLODIPine 5 mg | | | 0 | 11/3 | | Activ | | oral tablet | | | | 0/20 | | e | | | | | | 18 | | | + + + +---------+------+------+-------+ | Magnesium 250 mg | Take by mouth. | | 0 | | | Activ | | oral tablet | | | | | | e | + + + +---------+------+------+-------+ | aspirin EC 81 mg | Take by mouth. | | 0 | | | Activ | | oral tablet,delayed | | | | | | e | | release (DR/EC) | | | | | | | + + + +---------+------+------+-------+ Active Problems Not on file Social History + +-------+ +--------+------+ | Tobacco Use | Types | Packs/Day | Years | Date | | | | | Used | | + +-------+ +--------+------+ | Never Smoker | | | | | + +-------+ +--------+------+ + +---+---+---+ | Smokeless Tobacco: | | | | | Never Used | | | | + +---+---+---+ + + +---------+ + | Alcohol Use | Drinks/Week | oz/Week | Comments | + + +---------+ + | No | | | | + + +---------+ + + + + | Sex Assigned at | Date Recorded | | | | + + + | Not on file | | + + + + + + + | Job Start Date | Occupation | Industry | + + + + | Not on file | Not on file | Not on file | + + + + + + + + | Travel History | Travel Start | Travel End | + + + + + + | No recent travel history available. | + + Last Filed Vital Signs + + + + + | Vital Sign | Reading | Time Taken | Comments | + + + + + | Blood Pressure | 156/67 | 09/05/2018 10:29 AM | | | | | PST | | + + + + + | Pulse | 69 | 09/05/2018 10:29 AM | | | | | PST | | + + + + + | Temperature | - | - | | + + + + + | Respiratory Rate | - | - | | + + + + + | Oxygen Saturation | - | - | | + + + + + | Inhaled Oxygen | - | - | | | Concentration | | | | + + + + + | Weight | 54.6 kg (120 lb 4.8 | 09/05/2018 10:29 AM | | | | oz) | PST | | + + + + + | Height | - | - | | + + + + + | Body Mass Index | - | - | | + + + + + Plan of Treatment +--------+---------+ + + + | Date | Type | Specialty | Care Team | Description | +--------+---------+ + + + | 03/06/ | Office | | Damien Gallo, | | | 2019 | Visit | | [address] | | | | | | [place], [place] | | | | | | [address] | | | | | | [phone] | | | | | | | | +--------+---------+ + + + + + + + + | Health Maintenance | Due Date | Last Done | Comments | + + + + + | Pneumococcal (Adult) | | | | | (1 of 2 - PCV13) | 9 | | | + + + + + | Influenza (Flu) | | | | | vaccination (Season | 9 | | | | Ended) | | | | + + + + + Results Not on filefrom Last 3 Months Insurance + +--------+ +--------+ + +--------+ | Payer | Benefi | Subscriber | Effect | Phone | Address | Type | | | t Plan | ID | shirley | | | | | | / | | Dates | | | | | | Group | | | | | | + +--------+ +--------+ + +--------+ | MEDICARE | MEDICA | xxxxxxxxxxx | 03/04/19 | [phone] | [address] | Medica | | | RE A & | | 99-Pre | [address] | [phone] | [address] | | | B | | sent | | [place] | | | | | | | | [address] | | + +--------+ +--------+ + +--------+ | [place] | BLUE | [phone] | 09/04/19 | [phone] | [address] | PPO | | | CROSS | | 02-Pre | [address] | [phone] | | | | [place] | | sent | | [place], | | | | L | | | | [place] [address] | | + +--------+ +--------+ + +--------+ + +--------+ +--------+ + + | Guarantor Name | Accoun | Relation to | Date | Phone | Billing Address | | | t Type | Patient | of | | | | | | | | | | + +--------+ +--------+ + + | Maryann Gomez | Person | Self | [birth year] | [address] | | | al/Fam | | 1935 | [phone] | [place] [address] | | | ashli | | | 0 (Home) | | + +--------+ +--------+ + +"
--- OUTSIDE RECORDS SUMMARY | ~2019-01-19 | XMS | Clinical Summary ---
Demographics + + + | Address | [address] | | | [place] [address] | + + + | Home Phone | | + + + | Preferred Language | Unknown | + + + | Marital Status | | + + + | Presybeterian Affiliation | Unknown | + + + | Race | White | + + + | Ethnic Group | Not or | + + + Author + + + | Author | [facility] | + + + | Organization | [facility] | + + + | Address | Unknown | + + + | Phone | Unavailable | + + + Support + + + + + | Name | Relationship | Address | Phone | + + + + + | Beto Gomez | ECON | [address] | | | | | [place] | | | | | [address] | | + + + + + Care Team Providers + +------+ + | Care Industrial Cook Name | Role | Phone | + +------+ + | Diaz Acevedo MD | PP | | + +------+ + Source Comments SAMEER is fully live on both EpicCare Ambulatory and EpicCare InPatient.[facility] Allergies + + + + [...] | | 2019 | Visit | | [address] | | | | | | [place], [place] | | | | | | [address] | | | | | | [phone] | | | | | | | [...] | | | | | | | [address] | | + +--------+ +--------+ + +--------+ | [place] | BLUE | xxxxxxxxx | 09/04/19 | [phone] | [address] | PPO | | | CROSS | | 02-Pre | 8 | [phone] | | | | [place] | | sent | | [place], | | | | L | | | | [place] [address] | | + +--------+ +--------+ + +--------+ [...] | 1935 | [phone] | [place] [address] | | | ashli | | | 0 (Home) | | + +--------+ +--------+ + +"
--- OUTSIDE RECORDS SUMMARY | ~2019-01-19 | XMS | Clinical Summary ---
Demographics + + + | Address | [address] | | | [place] [address] | + + + | Home Phone | | + + + | Preferred Language | Unknown | + + + | Marital Status | | + + + | Bahai Affiliation | 1077 | + + + | Race | Unknown | + + + | Ethnic Group | Unknown | + + + Author + + + | Author | [facility] | | | and [place] | + + + | Organization | [facility] | | | and [place] | [...] Team Providers + +------+ + | Care Oil Expeller Operator Name | Role | Phone | + +------+ + PP | Unavailable | + +------+ + Allergies Not on File Medications Not on file Active Problems Not [...] recent travel history available. | + + Plan of Treatment + + [...] | | | | (Season Ended) | 9 | | | + + + + + Results Not on filefrom Last 3 Months"
--- OUTSIDE RECORDS SUMMARY | ~2019-01-19 | XMS | Encounter Summary ---
Demographics + + + | Address | [address] | | | [place] [address] | + + + | Home Phone | | + + + | Preferred Language | Unknown | + + + | Marital Status | | + + + | Muslim Affiliation | Unknown | + + + | Race | Unknown | + + + | Ethnic Group | Unknown | + + + Author + + + | Author | [facility] | + + + | Organization | [facility] | + + + | Address | Unknown | + + + | Phone | Unavailable | + + + Support + + +---------+ + | Name | Relationship | Address | Phone | + + +---------+ + | Beto Gomez | ECON | Unknown | | + + +---------+ + Care Team Providers + +------+ + | Care Hospital Superintendent Name | Role | Phone | + [...] Description | +--------+--------+ + + + | 10/30/ | Refill | [facility] | Vianney Monsalve | Medication Refill | | 2018 | | Cardiology Maulik Subramanian CMA | | | | | [address] | | | | | | [place] | | | | | | [address] | | | | | | [phone] | | | +--------+--------+ + + + [...] Description | +--------+---------+ + + + | 03/27/ | Office | Cardiology | Aris Curran, | | | 2018 | Visit | | MD Dianna Romero | | | | | | Dr [address], | | | | | | [place] [address] | | | | | | [phone] | | | | | | | | +--------+---------+ + + + as of this encounter Visit Diagnoses Not on filein this encounter"
--- OUTSIDE RECORDS SUMMARY | ~2019-01-19 | XMS | Clinical Summary ---
Demographics + + + | Address | [address] | | | [place] [address] | + + + | Home Phone | | + + + | Preferred Language | Unknown | + + + | Marital Status | | + + + | Mormon Affiliation | Unknown | + + + | Race | Unknown | + + + | Ethnic Group | Unknown | + + + Author + + + | Author | [facility] | + + + | Organization | [facility] | + + + | Address | Unknown | + + + | Phone | Unavailable | + + + Support + + +---------+ + | Name | Relationship | Address | Phone | + + +---------+ + | Beto Gomez | ECON | Unknown | | + + +---------+ + Care Team Providers + +------+ + | Care Manager Marketing Communications Name | Role | Phone | + [...] | aspirin 81 MG EC | Take 81 mg by mouth | | | | [...] | e | + + +--------+---------+------+------+-------+ | furosemide (LASIX) | Take 1 tablet by | 30 | 2 | 11/0 | 11/0 | Activ | | 20 MG tablet | mouth daily as | tablet | | 7/20 | 7/20 | e | | | needed (LE edema). | | | 18 | 19 | | + + +--------+---------+------+------+-------+ | losartan (COZAAR) | Take 1 tablet by | 90 | 2 | 11/0 | 11/0 | Activ | | 100 MG tablet | mouth daily. | tablet | | 7/20 | 7/20 | e | | | | | | 18 | 19 | | + + +--------+---------+------+------+-------+ | apixaban (ELIQUIS) | Take 1 tablet by | 180 | 2 | 11/1 | | Activ | | 2.5 MG tablet | mouth 2 (two) times | tablet | | 20 | | e | | | daily. | | | 18 | | | + + +--------+---------+------+------+-------+ | amLODIPine | Take 1 tablet by | 90 | 3 | 02/2 | | Activ | | (NORVASC) 5 MG | mouth daily. | tablet | | 02/21 | | e | | tablet | | | | 19 | | | + + +--------+---------+------+------+-------+ | Melatonin 10 MG | Take by mouth as | | | | | Activ | | TABS | needed. | | | | | e | + + +--------+---------+------+------+-------+ Active Problems + + + | Problem | Noted Date | + + + | Restrictive lung disease | 06/01/2018 | + + + | Chronic cough | 02/20/2018 | + + + | Shortness of breath | 02/20/2018 | + + + | First degree AV block | 07/16/2017 | + + + + + | Overview: The NJ interval was 230 ms on April 20, [...] | | she may well have sleep apnea.The DLCO was 13 (56%) on September | | 2017. The FVC was 2.2 and FEV1 was 1.55. The FEV1 over FVC | | was 70%. 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 [...] Hx POBA.Hx Pacemaker/ICD: | | noLast Cath: 1991Last Echo, 04/14/2016 ([facility]): TDS, LVEF | | 65-70%, cardiac chamber dimensions grossly NML, mild MR, mild TR, | | est systolic PAP 32-37mmHg.Last Stress Test: na48hr HM, | | 04/17/2015: sinus rhythm, 50-82, averaging [...] 7 | + + + + Encounters +--------+---------+ + + + | Date | Type | Specialty | Care Team | Description | +--------+---------+ + + + | 11/05/ | Office | | BinaDebbiemanda, | Sinus bradycardia | | 2018 | Visit | | MD | (Primary Dx); | | | | | | Paroxysmal atrial | | | | | | fibrillation ([facility]); | | | | | | Essential | | | | | | hypertension with | | | | | | goal blood pressure | | | | | | less than 130/80; | | | | | | 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 | | | | | | pectoris (HCC) | +--------+---------+ + + + | 10/30/ | Refill | | Vianney Monsalve | Medication Refill | | 2019 | | | [facility] | | +--------+---------+ + + + from Last 3 Months [...] + + + | Blood Pressure | 101/70 | 11/05/2018 11:41 AM PST | + + + + | Pulse | 54 | 11/05/2018 11:41 AM PST | + + + + | Temperature | 36.7 C (98.1 F) | 04/10/2018 4:18 PM PDT | + + + + | Respiratory Rate | 16 | 05/05/2016 11:10 AM PDT | + + + + | Oxygen Saturation | 99% | 11/05/2018 11:41 AM PST | + + + + | Inhaled Oxygen | - | - | | Concentration | | | + + + + | Weight | 55.8 kg (123 lb) | 11/05/2018 11:41 AM PST | + + + + | Height | 162.6 cm (5' 4") | 11/05/2018 11:41 AM PST | + + + + | Body Mass Index | 21.11 | 11/05/2018 11:41 AM PST | + + + + Plan of Treatment +--------+---------+ + + + | Date | Type | Specialty | Care Team | Description | +--------+---------+ + + + | 03/27/ | Office | | Aris Curran, | | | 2018 | Visit | | MD Dianna Romero | | | | | | Dr [address], | | | | | | [place] [address] | | | | | | [phone] | | | | | | | [...] +------+-------+ + | MEDICARE | MEDICA | [id number] | | | [address] | | | RE | | | | [place] [address] | | | IP-OP | | | | | + +--------+ +------+-------+ + | PREMERA | PREMER | [id number] | | | [address] [address] | | | A BLUE | | | | [place] | | | [place]OSS | | | | [address] | | | FED | | | [...] | + +--------+ +--------+ + + | IRAJ GOMEZ | Person | Self | [birth year] Home: | [address] | | | al/Fam | | [phone] | [phone] [place] | | | ashli | | | [phone] | [phone] | + +--------+ +--------+ + +
--- OUTSIDE RECORDS SUMMARY | ~2019-01-19 | XMS | Encounter Summary ---
Demographics + + + | Address | [address] | | | [place] [address] | + + + | Home Phone | | + + + | Preferred Language | Unknown | + + + | Marital Status | | + + + | Yarsanism Affiliation | Unknown | + + + | Race | White | + + + | Ethnic Group | Not or | + + + Author + + + | Author | [facility] | + + + | Organization | [facility] | + + + | Address | Unknown | + + + | Phone | Unavailable | + + + Support + + + + + | Name | Relationship | Address | Phone | + + + + + | Beto Gomez | ECON | [address] | | | | | [place] | | | | | [address] | | + + + + + Care Team Providers + +------+ + | Care Barrel Dedenting Machine Operator Name | Role | Phone | + +------+ + | Diaz Acevedo MD | PCP | | + +------+ + Encounter Details +--------+ + + + + | Date | Type | Department | Care Team | Description | +--------+ + + + + | 08/02/ | Hospital | Registration [facility] | | | | 2018 | Encounter | [address] | | | | | | [place] | | | | | | [place], [place] | | | | | | [address] | | | +--------+ + + + [...] recent travel history available. | + + documented as of this encounter Medications at Time of Discharge + +-----+ +---------+ + + | Medication | Sig | Dispensed | Refills | Start | End Date | | | | | | Date | | + +-----+ +---------+ + + | ELIQUIS 2.5 mg | | | 0 | 07/29/20 | | | oral tablet | | | | 18 | | + +-----+ +---------+ + + | losartan 100 mg | | | 0 | 07/11/20 | | | oral tablet | | | | 18 | | + +-----+ +---------+ + + documented as of this encounter Plan of Treatment +--------+---------+ + + + | Date | Type | Specialty | Care Team | Description | +--------+---------+ + + + | 03/06/ | Office | Urology | Damien Gallo, | | | 2018 | Visit | | [address] | | | | | | [place], [place] | | | | | | [address] | | | | | | [phone] | | | | | | | | +--------+---------+ + + + documented as of this encounter Visit Diagnoses Not on filedocumented in this encounter"
--- OUTSIDE RECORDS SUMMARY | ~2019-01-19 | XMS | Clinical Summary ---
Demographics + + + | Address | [address] | | | [place] [address] | + + + | Home Phone | | + + + | Preferred Language | Unknown | + + + | Marital Status | | + + + | Temple Affiliation | 1077 | + + + | Race | Unknown | + + + | Ethnic Group | Unknown | + + + Author + + + | Author | [facility] | | | and [place] | + + + | Organization | [facility] | | | and [...] Team Providers + +------+ + | Care Switchboard Installer Name | Role | Phone | [...]
--- OUTSIDE RECORDS SUMMARY | ~2019-01-19 | XMS | Encounter Summary ---
Demographics + + + | Address | [address] | | | [place] [address] | + + + | Home Phone | | + + + | Preferred Language | Unknown | + + + | Marital Status | | + + + | Uatsdin Affiliation | Unknown | + + + | Race | White | + + + | Ethnic Group | Not or | + + + Author + + + | Author | [facility] | + + + | Organization | [facility] | + + + | Address | Unknown | + + + | Phone | Unavailable | + + + Support + + + + + | Name | Relationship | Address | Phone | + + + + + | Beto Gomez | ECON | [address] | | | | | [place] | | | | | [address] | | + + + + + Care Team Providers + +------+ + | Care Seo Team Lead Name | Role | Phone | + +------+ + | Diaz Acevedo MD | PCP | | + +------+ + Reason for Referral Diagnostic Testing (Routine) + +--------+ + + + + | Status | Reason | Specialty | Diagnoses / | Referred By | Referred To | | | | | Procedures | Contact | Contact | + +--------+ + + + + | New Request | | Radiology | Diagnoses | [place] | | | | | | Renal mass, | MD Damien | | | | | | left | [address] | | | | | | Procedures | Ave | | | | | | CT ABDOMEN | [place], [place] | | | | | | AND PELVIS | [address] | | | | | | WWO IV | Phone: | | | | | | CONTRAST | [phone] | | | | | | | Fax: | | | | | | | [phone] | | + +--------+ + + + + Reason for Visit Intake Referral (Routine) +--------+--------+ + + + + | Status | Reason | Specialty | Diagnoses / | Referred By | Referred To | | | | | Procedures | Contact | Contact | +--------+--------+ + + + + | Closed | | Urology | Diagnoses | Hitzman, | Uro | | | | | 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, | Oncology [facility] | | | | | uncertain | MD | [address] | | | | | behavior of | TOI | [address] | | | | | left kidney | FAMILY | Mail Code: | | | | | R kidney | MEDICINE | CH10[facility] [place] | | | | | suspicious | [address] | for Health | | | | | lesion per | [address] | and Healing, | | | | | MRI | [place], | [address] Floor | | | | | | [place] [address] | [place], [place] | | | | | | Phone: | [address] | | | | | | [phone] | Phone: | | | | | | Fax: | [phone] | | | | | | [phone] | Fax: | | | | | | | [phone] | +--------+--------+ + + + + Encounter Details +--------+---------+ + + + | Date | Type | Department | Care Team | Description | +--------+---------+ + + + | 09/05/ | Office | Urology at [facility] | Damien Gallo, | Renal mass, left | | 2019 | Visit | [address] | MD [address] | (Primary Dx) | | | | Mail Code: CH10U | [place], [place] | | | | | [facility] | [address] | | | | | and [place], | [phone] | | | | | Floor [place], [place] | | | | | | [address] | | | | | | [phone] | | | +--------+---------+ + + + Social History [...] + + documented as of this encounter Last Filed Vital [...] | | + + + + + documented in this encounter Progress Notes Desean Olivas RN - 09/05/2018 11:[address] [facility] a CT to be done in 6 months from 09/14/2018. Deanne Singh MA - 09/05/2018 11:00 AM PSTReview of Syst ems HENT: Positive for hearing loss. Cardiovascular: Positive for palpitations and leg swelling. Genitourinary: Positive for urgency. Musculoskeletal: Positive for joint pain and myalgias. Endo/Heme/Allergies: Bruises/bleeds easily. All other systems reviewed and are negative. Damien Zavala M D - 09/05/2018 11:00 AM PST [facility] UROLOGY ONCOLOGY CLINIC VISIT PATIENT INFO: Maryann Gomez : 1935 REFERRING M.D.: Diaz Acevedo MD [address] [address] CHIEF COMPLAINT: Left renal mass HPI: The patient is 83 y.o. with a left renal mass. The lesion was initially detected on CT abd pelvis performed on May 2018. The lesion originates from the mid to upper pole of t he left kidney, measuring 0.9 cm in greatest diameter. It is without evidence of extensio n into the renal sinus. There is no evidence of regional adenopathy, vascular invasion or me tastatic disease. PRESENTING SYMPTOMS: Onset of symptoms: Hematuria: none Obstructive voiding symptoms: none. Irritative voiding symptoms: none Abdominal Pain: absent Flank Pain: absent Flank Mass: absent Bone Pain: absent Peripheral Edema: absent Constitutional symptoms: Negative Renal disease: no DATA REVIEW IMAGING: CT abd/pelvis and MRI abd pelvis reveiwed: 0.9 cm solid left renal mass noted, multiple sharad ateral small renal cysts I personally reviewed the images from above-mentioned radiology studies and agree with the interpretation as documented. PAST MEDICAL HISTORY/COMORBIDITIES: PMH: HTN, Afib PSH: Heart Bypass, Cholecystectomy, ovarian tumor resection, Hip relacement, Knee replaceme nt, Wrist plates FAMILY HISTORY Kidney Ca: none SOCIAL HISTORY Social History Social History Marital status: Spouse name: N/A Number of children: N/A Years of education: N/A Social History Main Topics Smoking status: Never Smoker Smokeless tobacco: Never Used Alcohol use No Drug use: No Sexual activity: Not on file Other Topics Concern Not on file Social History Narrative No narrative on file Allergies Allergen Reactions Chlorthalidone Unknown Very low sodium, felt weak Hydrocodone-Acetaminophen Rash Not sure, confused and rash Oxycodone Rash Sulfasalazine Rash Cephalexin Stomach Upset REVIEW OF SYSTEMS: Review of Systems: A complete review of systems was performed, reviewed by me, and is doc umented on the intake sheet. The pertinent positives and negatives are documented. The rest are negative PHYSICAL EXAM: [facility]: 0 GENERAL APPEARANCE: healthy, alert HEENT: Normocephalic, atraumatic NECK: No Masses RESPIRATORY: Clear to auscultation bilaterally, normal respiratory effort. CARDIAC: regular rate and rhythm GI: Soft, non-tender, non-distended, normoactive bowel sounds. No Organomegaly. MUSCULOSKELETAL: nl gait NEUROLOGIC: Cranial nerves 2 through 12 are intact. Strength is 5/5 in all major muscle gr oups. Deep tendon reflexes are 2+ and symmetric throughout. SKIN: no rashes or significant breakdown LYMPHATIC: No supraclavicular or cervical adenopathy. BACK: no CVAT See impression and plan outlined in detail below. IMPRESSION AND PLAN: Ms Gomez is 83 y.o. Female with 0.9 cm small left renal mass. The diagnosis of renal mass was discussed in great detail. We discussed the fact that enha ncement within a renal mass suggests malignancy, but that a benign renal tumor cannot be exc luded. Overall the risks of malignancy appears to be about 80-90%. We discussed the problems with renal biopsy, the limited indications, and the need to treat based primarily on radiographic findings. The patient appears to understand that there is about a 10-20% chance that this mass may be benign. Regarding treatment, we discussed radical vs. partial nephrectomy. With respect to partial nephrectomy we discussed a potential advantage with preservation of long-term renal functio n moth exterminator and the equivalent long-term cancer control rates with appropriately selected pa tients. We discussed the small (~4%) risk of local recurrence and recurrence in the contral ateral kidney and the need for long-term radiographic surveillance postoperatively. We disc ussed the higher complication rate with open radical vs partial nephrectomy related to a hig her risk of prolonged urine leak, urinoma, hemorrhage requiring transfusion, infection, and possible need for reoperation. We also discussed the potential need for radical nephrectomy based on intraoperative findings. For radical and partial nephrectomy, we discussed the ri sks associated with any major surgery, including cardiovascular, pulmonary, anesthetic, and thromboembolic problems as well as wound healing problems. We discussed risk of cancer recu rrence and the potential need for additional therapy. We also discussed risk of renal insuf ficiency and dialysis short and long-term with radical nephrectomy. We also discussed open vs. robotic-assisted laparoscopic surgery and advantages and disadva ntages each way. For laparoscopic surgery, we discussed possibility that conversion to open surgery might be required dependent on intraoperative findings and anatomy. We also discussed renal ablative therapies such as cryotherapy and RFA. We reviewed the da ta for these modalities and the overall encouraging findings thus far, but also discussed th e fact that long-term cancer control issues remain unproven due to the still somewhat novel status of these modalities. As such, the fact that these procedures are still considered ex perimental was conveyed. We discussed the role of observation and the low risk of metastases associated with lesions less than 3 cm in size and the potential for slow/stable growth in many cases. However, th e unpredictable natural history of these lesions was mentioned as a drawback with this appro ach and the lack of effective therapy in the event of systemic progression. In general, thi s approach is most favored for those with limited life expectancy and/or those with indeterm inate (< 3 cm) renal masses. All questions were answered. Plan: - She would like to proceed with active surveillance. - We will get a CT abd pelvis with and without contrast in 6 month in [place] and follow up in clinic. Damien Gallo M.D. Dye Winch Operator Section of Urologic Oncology Department of Urology [facility] Electronically Signed documented in this e ncounter Plan of Treatment +--------+---------+ + + + | Date | Type | Specialty | Care Team | Description | +--------+---------+ + + + | 03/06/ | Office | Urology | Damien Gallo, | | | 2018 | Visit | | [address] | | | | | | [place], [place] | | | | | | [address] | | | | | | [phone] | | | | | | | | +--------+---------+ + + + + +---------+--------+ + + | Name | Type | Priori | Associated Diagnoses | Order Schedule | | | | ty | | | + +---------+--------+ + + | CT ABDOMEN AND | Imaging | Routin | Renal mass, left | Expected: | | PELVIS WWO IV | | e | | 09/14/2018, Expires: | | CONTRAST | | | | 10/15/2019 | + +---------+--------+ + + documented as of this encounter Visit Diagnoses + + | Diagnosis | + + | Renal mass, left - Primary Unspecified disorder of kidney and ureter | + + documented in this encounter"
--- OUTSIDE RECORDS SUMMARY | ~2019-01-19 | XMS | Encounter Summary ---
Demographics + + + | Address | [address] | | | [place] [address] | + + + | Home Phone | | + + + | Preferred Language | Unknown | + + + | Marital Status | | + + + | Jewish Affiliation | Unknown | + + + | Race | Unknown | + + + | Ethnic Group | Unknown | + + + Author + + + | Author | [facility] | + + + | Organization | [facility] | + + + | Address | Unknown | + + + | Phone | Unavailable | + + + Support + + +---------+ + | Name | Relationship | Address | Phone | + + +---------+ + | Beto Gomez | ECON | Unknown | | + + +---------+ + Care Team Providers + +------+ + | Care Kiln Pusher Name | Role | Phone | + +------+ + | Yennifer Acevedo MD | PCP | | + +------+ + Reason for Visit + + + | Reason | Comments | + + + | Follow-up | 3 month | + + + Encounter Details +--------+---------+ + + + | Date | Type | Department | Care Team | Description | +--------+---------+ + + + | 11/05/ | Office | [facility] | Aris Thayer, | Sinus bradycardia | | 2019 | Visit | Cardiology Karen | [address] | (Primary Dx); | | | | [address] | Dr Sanders, | Paroxysmal atrial | | | | [facility] [address] | [place] [address] | fibrillation (HCC); | | | | [place] [address] | [phone] | Essential | | | | [phone] | | hypertension with | | | | | | goal blood pressure | | | | | | less than 130/80; | | | | | | Coronary artery | | | | | | disease involving | | | | | | coronary bypass | | | | | | graft of makah | | | | | | heart with angina | | | | | | pectoris (HCC) | +--------+---------+ + + + Social [...] AM PST | + + + + in this encounter Progress Notes Aris Thayer MD - 11/05/2018 11:15 AM PSTFormatting of this note may be different fro m the original. Date of visit: 11/05/2018 Primary Care Physician: YENNIFER ACEVEDO CHIEF COMPLAINT: Chief Complaint Patient presents with Follow-up 3 month HISTORY OF PRESENT ILLNESS: Maryann is 83 y.o. here for follow up visits. Since prior evaluation, no shortness of breath or cough. Blood pressure is controlled. Has been following with Dr. Dodson. Denies any palpitations at this time. Has not had to use any furosemide. Was evaluated in May [address] of the abdomen and subsequently MRI both showed left renal mass. Previously: Pulmonary function test was performed and showed severely decreased perfusion. Amiodarone w as stopped almost a month ago. Apixaban dose was decreased to 2.5 mg bid secondary to bleeding gums. Amiodarone was stopped due to pulmonary complications. Symptoms started in December 2017. At that [...] chart. Medications: Outpatient Encounter Prescriptions as of 11/05/2018 Medication Sig Dispense Refill Acetaminophen (TYLENOL 8 HOUR PO) Take by mouth as needed. amLODIPine (NORVASC) 5 MG tablet Take 1 tablet by mouth daily. 90 tablet 3 apixaban (ELIQUIS) 2.5 MG tablet Take 1 tablet by mouth 2 (two) times daily. 180 tablet 2 aspirin 81 MG EC tablet Take 81 mg by mouth daily with breakfast. losartan (COZAAR) 100 MG tablet Take 1 tablet by mouth daily. 90 tablet 2 Magnesium 250 MG TABS tablet Take 250 mg by mouth daily. Melatonin 10 MG TABS Take by mouth as needed. furosemide (LASIX) 20 MG tablet Take 1 tablet by mouth daily as needed (LE edema). (Pat ient not taking: Reported on 11/05/2018) 30 tablet 2 potassium chloride (K-DUR,KLOR-CON) 20 MEQ tablet Take 1 tablet by mouth daily as neede d. needed with Furosemide. (Patient not taking: Reported on 11/05/2018) 60 tablet 1 No facility-administered encounter medications on file as of 11/05/2018. Allergies Allergies Allergen Reactions Chlorthalidone Other (See Comments) Very low sodium, felt weak Oxycodone Rash Sulfa Antibiotics Rash Vicodin [Hydrocodone-Acetaminophen] Other (See Comments) Not sure, confused and rash Keflex [Cephalexin] GI Distress REVIEW OF SYSTEMS: Constitutional: mild fatigue. HEENT: Negative for nosebleeds, ear discharge, nasal congestion or soar throat. Eyes: Negative for visual disturbance, redness, or secretion. Respiratory: Improved cough and shortness of breath. Cardiovascular: HPI. Gastrointestinal: Negative for nausea, vomiting, diarrhea, abdominal pain and blood in stoo l. Genitourinary: Negative for dysuria or hematuria. Musculoskeletal: arthritic and back pain. LE edema. Skin: Negative for rash. Neurological: Negative for dizziness. No numbness. No recent falls. No slurred speech. Hematological: No significant bruising. Psychiatric/Behavioral: No depression or anxiety. PHYSICAL EXAM Vital Signs: BP 101/70 (BP Location: Left upper arm, Patient Position: Sitting) | Pulse 54 | Ht 1.626 m (5' 4") | Wt 55.8 kg (123 lb) | SpO2 99% | BMI 21.11 kg/m GENERAL APPEARANCE: Alert, oriented, cooperative, no [...] No palpable organs. Active bowel sounds. EXTREMITIES: LE edema more at the ankles. NEURO: Alert and oriented times three with no focal deficit. Cranial nerves are grossly no rmal. SKIN: Warm and dry. No rash. Psych: Normal affect and mood. DATA 05/24/2018 Sodium 136, potassium 4.3, chloride 99, bicarbonate 26, BUN 22, creatinine 1.1, GFR 47, AST 16, AST 17, alk phos 90. WBC 14.0, hemoglobin 13.7, platelets 427. Lab Results Component Value Date/Time NA 137 [...] frequent premature rupture contractions, premature ventricular contractions. ASSESSMENT: Patient is 83 y.o. female with the following medical problems. 1. 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 Denies any chest pain. 2. Paroxysmal atrial fibrillation. stopped amiodarone secondary to possible pulmonic side effect. Could not tolerate beta blockers secondary to fatigue and tiredness patient was foun d to have marked bradycardia heart rate will decrease to the 30s. CHADSVASc of 4. 3. Preserved LV function. 4. Hypertension, blood pressure is controlled. 5. Abnormal pulmonary function test with severely decreased perfusion, possibly secondary t o amiodarone which was stopped. Improved symptoms. 6. Loud systolic murmur out of proportion of echocardiogram findings. 7. Mild mitral regurgitation with mild lower extremity edema. 8. Incidental finding of left renal mass suspicious for malignancy. Plan: Patient has been asymptomatic from Cardiac stand of point. Blood pressure has been controll ed. No atrial fibrillation. 1. Continue with Losartan and amlodipine. 2. Continue with anticoagulation. Patient had bleeding gums, plus age and weight hence on 2 .5 mg bid. 3. Continue with Amlodipine 5 mg once daily. 4. Furosemide 20 mg once daily only as needed. 5. Further recommendations to follow. *This report has [...] 03/27/ | Office | Cardiology | Aris Thayer, | | | 2018 | Visit | | MD Dianna Romero | | | | | | Dr Sanders, | | | | | | [place] [address] | | | | | | [phone] | | | | | | | | +--------+---------+ + + + as of this encounter Visit Diagnoses + + | Diagnosis | + + | Sinus bradycardia - Primary | + + | Other specified cardiac dysrhythmias | + + | Paroxysmal atrial fibrillation (HCC) | + + | Atrial fibrillation | + + | Essential hypertension with goal blood pressure less than 130/80 | + + | Coronary artery disease involving coronary bypass graft of makah heart with angina | | pectoris (HCC) | + +
--- OUTSIDE RECORDS SUMMARY | ~2019-01-19 | XMS | Encounter Summary ---
Demographics + + + | Address | [address] | | | [place] [address] | + + + | Home Phone | | + + + | Preferred Language | Unknown | + + + | Marital Status | | + + + | Faith Affiliation | Unknown | + + + | Race | White | + + + | Ethnic Group | Not or | + + + Author + + + | Author | [facility] | + + + | Organization | [facility] | + + + | Address | Unknown | + + + | Phone | Unavailable | + + + Support + + + + + | Name | Relationship | Address | Phone | + + + + + | Beto Gomez | ECON | [address] | | | | | [place] | | | | | [address] | | + + + + + Care Team Providers + +------+ + | Care Emergency Care Attendant Name | Role | Phone | + [...] | | | | | left | [address] | | | | | | Procedures | Ave | | | | | | CT ABDOMEN | [place], [place] | | | | | | AND PELVIS | [address] | | | | | | WWO IV | Phone: | | | | | | CONTRAST | [phone] | | | | | | | Fax: | | | | | | | [phone] | | + +--------+ + + + [...] 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, | Oncology [facility] | | | | | uncertain | MD | [address] | | | | | behavior of | TOI | [address] | | | | | left kidney | FAMILY | Mail Code: | | | | | R kidney | MEDICINE | CH10U [place] | | | | | suspicious | [address] | for Health | | | | | lesion per | [address] | and Healing, | | | | | MRI | TOI, | 10th Floor | | | | | | [place] [address] | [place], [place] | | | | | | Phone: | [address] | | | | | | [phone] | Phone: | | | | | | Fax: | [phone] | | | | | | [phone] | Fax: | | | | | | | [phone] | +--------+--------+ + + + + Encounter Details +--------+---------+ + + + | Date | Type | Department | Care Team | Description | +--------+---------+ + + + | 09/05/ | Office | Urology at [facility] | Damien Gallo, | Renal mass, left | | 2019 | Visit | [address] | MD [address] | (Primary Dx) | | | | Mail Code: CH10U | [place], [place] | | | | | [facility] | [address] | | | | | and [place], | [phone] | | | | | Floor [place], [place] | | | | | | [address] | | | | | | [phone] | | | +--------+---------+ + + + [...] AM PSTA CT request was faxed to [facility] for a CT to be done in [...] M D - 09/05/2018 11:00 AM PST [facility] UROLOGY ONCOLOGY CLINIC VISIT PATIENT INFO: Maryann Gomez : 1935 REFERRING M.D.: Diaz Acevedo MD [address] [address] CHIEF COMPLAINT: Left renal mass HPI: The [...] with preservation of long-term renal functio n long term care pharmacist and the equivalent long-term cancer control rates [...] follow up in clinic. Damien Gallo M.D. Office Clinician Section of Urologic Oncology Department of Urology [facility] Electronically Signed documented in this e ncounter Plan of Treatment +--------+---------+ + + + | Date | Type | Specialty | Care Team | Description | +--------+---------+ + + + | 03/06/ | Office | Urology | Damien Gallo, | | | 2018 | Visit | | [address] | | | | | | [place], [place] | | | | | | [address] | | | | | | [phone] | | | | | | | [...]
--- OUTSIDE RECORDS SUMMARY | ~2019-01-19 | XMS | Encounter Summary ---
Demographics + + + | Address | [address] | | | [place] [address] | + + + | Home Phone | | + + + | Preferred Language | Unknown | + + + | Marital Status | | + + + | Gnosticism Affiliation | Unknown | + + + | Race | White | + + + | Ethnic Group | Not or | + + + Author + + + | Author | [facility] | + + + | Organization | [facility] | + + + | Address | Unknown | + + + | Phone | Unavailable | + + + Support + + + + + | Name | Relationship | Address | Phone | + + + + + | Beto Gomez | ECON | [address] | | | | | [place] | | | | | [address] | | + + + + + Care Team Providers + +------+ + | Care High Rigger Name | Role | Phone | + +------+ + PCP | Unavailable | + +------+ + Encounter Details +--------+ + + + + | Date | Type | Department | Care Team | Description | +--------+ + + + + | 07/25/ | Abstract | Urology at [facility] | Clinic, | | | 2017 | | [address] | Urology/Oncology | | | | | Mail Code: CH10U | | | | | | [facility] | | | | | | and Healing, 10th | | | | | | Floor [place], [place] | | | | | | [address] | | | | | | [phone] | | | +--------+ + + + [...] Urology | Damien Gallo, | | | 2019 | Visit | | [address] | | | | | | [place], [place] | | | | | | [address] | | | | | | [phone] | | | | | | | | +--------+---------+ + + + documented as of this encounter Visit Diagnoses Not on filedocumented in this encounter"
--- OUTSIDE RECORDS SUMMARY | ~2019-01-19 | XMS | Encounter Summary ---
Demographics + + + | Address | [address] | | | [place] [address] | + + + | Home Phone | | + + + | Preferred Language | Unknown | + + + | Marital Status | | + + + | Baptism Affiliation | Unknown | + + + | Race | White | + + + | Ethnic Group | Not or | + + + Author + + + | Author | [facility] | + + + | Organization | [facility] | + + + | Address | Unknown | + + + | Phone | Unavailable | + + + Support + + + + + | Name | Relationship | Address | Phone | + + + + + | Beto Gomez | ECON | [address] | | | | | [place] | | | | | [address] | | + + + + + Care Team Providers + +------+ + | Care Book Illustrator Name | Role | Phone | + [...] Eli | | | | | | [place] [address] | | | | | | [place], [place] | | | | | | [address] | | | +--------+ + + + [...] [address] | | | | | | [place], [place] | | | | | | [address] | | | | | | [phone] | | | | | | | | +--------+---------+ + + + documented as of this encounter Visit Diagnoses Not on filedocumented in this encounter"
--- OUTSIDE RECORDS SUMMARY | ~2019-01-19 | XMS | Clinical Summary ---
Demographics + + + | Address | [address] | | | [place] [address] | + + + | Home Phone | | + + + | Preferred Language | Unknown | + + + | Marital Status | | + + + | Hinduism Affiliation | Unknown | + + + | Race | Unknown | + + + | Ethnic Group | Unknown | + + + Author + + + | Author | [facility] | + + + | Organization | [facility] | + + + | Address | Unknown | + + + | Phone | Unavailable | + + + Support + + +---------+ + | Name | Relationship | Address | Phone | + + +---------+ + | Beto Gomez | ECON | Unknown | | + + +---------+ + Care Team Providers + +------+ + | Care Glazing Machine Operator Name | Role | Phone [...] + + + + | Overview: The MA interval was 230 ms on April 20, [...] artery disease involving coronary bypass graft of ho-chunk | 04/06/2016 | | heart with angina [...] | | | fibrillation ([facility]); | | | | | | [...] | | | | | graft of ho-chunk | | | | | | heart [...] | | | | | | [place] [address] | | | | | | [phone] | | | | | | | [...] +------+-------+ + | MEDICARE | MEDICA | [id number] | | | [address] | | | RE | | | | [place] [address] | | | IP-OP | | | | | + +--------+ +------+-------+ + | PREMERA | PREMER | [id number] | | | [address] [address] | | | A BLUE | | | | [place] | | | CROSS | | | | [address] | | | FED | | | [...] | | al/Fam | | 1935 | [phone] [place] | | | ashli | | | [address] | [address] | + +--------+ +--------+ + +
--- OUTSIDE RECORDS SUMMARY | ~2019-01-19 | XMS | Encounter Summary ---
Demographics + + + | Address | [address] | | | [place] [address] | + + + | Home Phone | | + + + | Preferred Language | Unknown | + + + | Marital Status | | + + + | Restoration Affiliation | Unknown | + + + | Race | Unknown | + + + | Ethnic Group | Unknown | + + + Author + + + | Author | [facility] | + + + | Organization | [facility] | + + + | Address | Unknown | + + + | Phone | Unavailable | + + + Support + + +---------+ + | Name | Relationship | Address | Phone | + + +---------+ + | Beto Gomez | ECON | Unknown | | + + +---------+ + Care Team Providers + +------+ + | Care Fish Culturist Name | Role | Phone | + [...] | Paroxysmal atrial | | | | [facility] [address] | [place] [address] | fibrillation (HCC); | | | | [place] [address] | [phone] | Essential | | | | [phone] | | hypertension with | | | | | | goal blood pressure | | | | | | less than 130/80; | | | | | | 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 Was evaluated in May 2018 in [facility] for constipation. 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
--- OUTSIDE RECORDS SUMMARY | ~2019-01-19 | XMS | Encounter Summary ---
Demographics + + + | Address | [address] | | | [place] [address] | + + + | Home Phone | | + + + | Preferred Language | Unknown | + + + | Marital Status | | + + + | Scientologist Affiliation | Unknown | + + + | Race | Unknown | + + + | Ethnic Group | Unknown | + + + Author + + + | Author | [facility] | + + + | Organization | [facility] | + + + | Address | Unknown | + + + | Phone | Unavailable | + + + Support + + +---------+ + | Name | Relationship | Address | Phone | + + +---------+ + | Beto Gomez | ECON | Unknown | | + + +---------+ + Care Team Providers + +------+ + | Care Mushroom Growth Media Mixer Name | Role | Phone | + [...] + | 10/30/ | Refill | [facility] | Vianney Monsalve | Medication Refill | | 2018 | | Cardiology Maulik Subramanian CMA | | | | | [address] | | | | | | [place] | | | | | | [address] | | | | | | [phone] | | | +--------+--------+ + + + [...] | | | | | | [place] [address] | | | | | | [phone] | | | | | | | | +--------+---------+ + + + as of this encounter Visit Diagnoses Not on filein this encounter"
--- OUTSIDE RECORDS SUMMARY | ~2019-01-19 | XMS | Encounter Summary ---
Demographics + + + | Address | [address] | | | [place] [address] | + + + | Home Phone [...] + + + | Author | [facility] | + + + | Organization | [facility] | + + + | Address | Unknown | + + + | Phone | Unavailable | + + + Support + + + + + | Name | Relationship | Address | Phone | + + + + + | Beto Gomez | ECON | [address] | | | | | [place] | | | | | [address] | | + + + + + Care Team Providers + +------+ + | Care Perl Programmer Name | Role | Phone | + +------+ + PCP | Unavailable | + +------+ + Encounter Details +--------+ + + + + | Date | Type | Department | Care Team | Description | +--------+ + + + + | 07/25/ | Abstract | Urology at [facility] | Clinic, | | | 2017 | | [address] | Urology/Oncology | | | | | Mail Code: CH10U | | | | | | [facility] | | | | | | and Healing, 10th | | | | | | Floor [place], [place] | | | | | | [address] | | | | | | [phone] | | | +--------+ + + + [...] | | 2019 | Visit | | [address] | | | | | | [place], [place] | | | | | | [address] | | | | | | [phone] | | | | | | | | +--------+---------+ + + + documented as of this encounter Visit Diagnoses Not on filedocumented in this encounter"
[~2019-01-19 10:31] MED LIST changes: +ELIQUIS2.5 MG PO; +ENULOSE10 GM/15 M PO
[2019-01-19] MEDS ORDERED: LOSARTAN POTAS100 MG PO (10:46)
--- NOTE | 2019-01-20 15:10 | EKG ---
[facility] [address] [facility] [place] [address] Signed Sinus rhythm with 1st degree AV block Possible Left atrial enlargement Left anterior fascicular block Left ventricular hypertrophy with repolarization abnormality Anteroseptal infarct (cited on or before 31-MAR-2017) Abnormal ECG When compared with ECG of 31-MAR-2017 14:33, premature ventricular complexes are no longer present Nonspecific T wave abnormality now evident in Anterior leads Confirmed by BRITTNEE OGDEN DO ([id number]) on 01/20/2019 3:10:16 PM Electronically Signed By: BRITTNEE OGDEN DO 01/20/19 1510 PATIENT NAME: IRAJ ARIZMENDI Electrocardiogram DATE OF : 33 PHYSICIAN: BRITTNEE OGDEN DO REPORT #: [id number] REPORT IS CONFIDENTIAL AND NOT TO BE RELEASED WITHOUT AUTHORIZATION
== END 2019-01-19 12:38 | disposition home or self-care (01) ==
LOC: ED 10:31
DX: R00.2 Palpitations (principal); I25.2 Old myocardial infarction; I48.91 Unspecified atrial fibrillation; Z90.49 Acquired absence of other specified parts of digestive tract; Z95.1 Presence of aortocoronary bypass graft; Z88.1 Allergy status to other antibiotic agents; Z88.5 Allergy status to narcotic agent; Z88.2 Allergy status to sulfonamides; Z88.8 Allergy status to other drugs, medicaments and biological substances; Z79.82 Long term (current) use of aspirin; Z79.899 Other long term (current) drug therapy
CPT/HCPCS: 0296T; 0297T; 0298T; 80053; 84484; 85025; 93005; 93010; 99285-25

== ENCOUNTER 2020-12-09 14:56 | Emergency (ER) | payer MEDICARE, BC ==
[~2020-12-09] VITALS: Ht 160 cm; Wt 47.6 kg
[~2020-12-09 14:56] MED LIST changes: +LOSARTAN POTAS100 MG PO
--- NOTE | 2020-12-09 19:42 | EKG ---
[facility] [address] [place] [address] Signed Sinus rhythm with 1st degree AV block with fusion complexes Possible Left atrial enlargement Left anterior fascicular block Anterolateral infarct (cited on or before 31-MAR-2017) Abnormal ECG When compared with ECG of 19-JAN-2019 10:38, fusion complexes are now present Confirmed by STACEY MOHAN MD ([id number]) on 12/09/2020 7:42:05 PM Electronically Signed By: STACEY MOHAN MD 12/09/201941 PATIENT NAME: IRAJ ARIZMENDI Electrocardiogram DATE OF : 33 PHYSICIAN: STACEY MOHNA MD REPORT #: [id number] REPORT IS CONFIDENTIAL AND NOT TO BE RELEASED WITHOUT AUTHORIZATION
== END 2020-12-09 18:09 | disposition home or self-care (01) ==
LOC: ED 14:56
DX: I10 Essential (primary) hypertension (principal); F43.9 Reaction to severe stress, unspecified; I25.2 Old myocardial infarction; I48.91 Unspecified atrial fibrillation; Z88.8 Allergy status to other drugs, medicaments and biological substances; Z88.5 Allergy status to narcotic agent; Z88.2 Allergy status to sulfonamides; Z88.1 Allergy status to other antibiotic agents; Z79.899 Other long term (current) drug therapy; Z79.82 Long term (current) use of aspirin
CPT/HCPCS: 71045; 80053; 83735; 84484; 85025; 93005; 93010; 99284-25

== ENCOUNTER 2021-03-02 19:34 | Emergency (ER) | payer MEDICARE, BC ==
[~2021-03-02] VITALS: Ht 160 cm; Wt 47.6 kg
== END 2021-03-02 23:17 | disposition home or self-care (01) ==
LOC: ED 19:34
DX: R10.30 Lower abdominal pain, unspecified (principal); R11.0 Nausea; I25.2 Old myocardial infarction; I48.91 Unspecified atrial fibrillation; M19.90 Unspecified osteoarthritis, unspecified site; Z88.8 Allergy status to other drugs, medicaments and biological substances; Z88.5 Allergy status to narcotic agent; Z88.2 Allergy status to sulfonamides; Z88.1 Allergy status to other antibiotic agents; Z79.899 Other long term (current) drug therapy; Z79.82 Long term (current) use of aspirin
CPT/HCPCS: 74176; 80053; 81001; 83690; 85025; 99284-25

== ENCOUNTER 2022-04-18 06:59 | Emergency (ER) | payer MEDICARE, BC ==
[~2022-04-18] VITALS: Ht 160 cm; Wt 46.3 kg
[2022-04-18] MEDS ORDERED: AMLODIPINE BES2.5 MG PO (07:14)
[2022-04-18] MEDS ORDERED: FUROSEMIDE20 MG PO (07:14)
[2022-04-18] MEDS ORDERED: TACROLIMUS30 G1 (07:14)
[2022-04-18] MEDS ORDERED: LOSARTAN POTASS50 MG PO (07:15)
--- NOTE | 2022-04-19 07:28 | EKG ---
[facility] [address] [facility] [place] [address] Signed Accelerated Junctional rhythm with premature ventricular complexes or fusion complexes Anteroseptal infarct , age undetermined Marked ST abnormality, possible inferior subendocardial injury Abnormal ECG No previous ECGs available Confirmed by STACEY MOHAN MD ([id number]) on 04/19/2022 7:28:07 AM Electronically Signed By: STACEY MOHAN MD 04/19/22 0728 PATIENT NAME: IRAJ ARIZMENDI Electrocardiogram DATE OF : [birth year] PHYSICIAN: STACEY MOHAN MD REPORT #: [id number] REPORT IS CONFIDENTIAL AND NOT TO BE RELEASED WITHOUT AUTHORIZATION
== END 2022-04-18 11:08 | disposition home or self-care (01) ==
LOC: ED 06:59
DX: R07.89 Other chest pain (principal); I48.91 Unspecified atrial fibrillation; I25.2 Old myocardial infarction; I25.10 Atherosclerotic heart disease of native coronary artery without angina pectoris; Z95.1 Presence of aortocoronary bypass graft; Z79.01 Long term (current) use of anticoagulants; Z88.8 Allergy status to other drugs, medicaments and biological substances; Z88.2 Allergy status to sulfonamides; Z88.5 Allergy status to narcotic agent; Z88.1 Allergy status to other antibiotic agents; Z79.899 Other long term (current) drug therapy; Z79.82 Long term (current) use of aspirin
CPT/HCPCS: 36415; 71045; 80053; 83735; 84484; 85025; 93005; 93010; 99285-25

== ENCOUNTER 2023-08-03 09:24 | Emergency (ER) | payer MEDICARE, BC ==
[~2023-08-03] VITALS: Ht 160 cm; Wt 40.2 kg
[~2023-08-03 09:24] MED LIST changes: +AMLODIPINE BES2.5 MG PO; +FUROSEMIDE20 MG PO; +LOSARTAN POTASS50 MG PO; +TACROLIMUS30 G1
[2023-08-03 09:45] LABS: BASOPHILS 0.6 % (0-2); EOSINOPHILS 0.6 % (0-6); HEMOGLOBIN 14.8 g/dL (12.0-18.0); LYMPHOCYTES 21.7 % (24-44); MCH 31.1 (27-36); MCHC 32.9 g/dl (30-36); MCV 94.5 fl (81-99); MONOCYTES 7.8 % (0-12); NEUTROPHILS 69.3 % (39-80); PLATELET COUNT 238 K/uL (140-440); RBC 4.76 M/ul (4.3-5.7); RDW 13.7 (10.5-15.0)
[2023-08-03] MEDS ORDERED: LOSARTAN POTASS25 MG PO (09:51)
[2023-08-03 09:54] LABS: INR 1.05 (0.80-1.30); PROTIME 13.2 Sec (11.2-14.2)
[2023-08-03] MEDS ORDERED: ELIQUIS2.5 MG PO (09:59)
[2023-08-03 10:02] LABS: ALBUMIN 3.8 g/dL (3.4-5.0); ALBUMIN/GLOBULIN RATIO 1.15 (1.1-2.4); ANION GAP 11.7 (7-21); BILIRUBIN, TOTAL 0.7 ng/dL (0.2-1.0); BUN/CREATININE RATIO 27.05 (6.0-28.6); CALCIUM 10.3 mg/dL (8.5-10.1); CREATININE, SERUM 0.85 mg/dL (0.55-1.02); POTASSIUM 3.7 mmol/L (3.5-5.1); PROTEIN, TOTAL 7.1 g/dL (6.4-8.2)
[2023-08-03] MEDS ORDERED: D3-200050 MCG PO (10:02)
[2023-08-03] MEDS ORDERED: CENTRUM ADULTS1 EACH PO (10:02)
[2023-08-03] MEDS ORDERED: VITAMIN C125 MG PO (10:03)
[2023-08-03 12:15] VITALS: BP 134/78
--- NOTE | 2023-08-03 21:07 | EKG ---
[facility] [address] [place] [address] Signed Atrial fibrillation with rapid ventricular response Left anterior fascicular block Left ventricular hypertrophy with repolarization abnormality ( R in aVL , Parvez product , Romhilt-Schulte ) Anteroseptal infarct (cited on or before 31-MAR-2017) Abnormal ECG When compared with ECG of 21-APR-2023 10:21, Atrial fibrillation has replaced Sinus rhythm Vent. rate has increased BY 53 BPM Confirmed by Asaf Maravilla MD () on 08/03/2023 9:06:56 PM Electronically Signed By: ASAF MARAVILLA MD 08/03/232106 PATIENT NAME: IRAJ ARIZMENDI Electrocardiogram DATE OF : [birth year] PHYSICIAN: ASAF MARAVILLA MD REPORT #: [id number] REPORT IS CONFIDENTIAL AND NOT TO BE RELEASED WITHOUT AUTHORIZATION
== END 2023-08-03 12:15 | disposition home or self-care (01) ==
LOC: ED 09:24
PROVIDERS: Student in an Organized Health Care Education/Training Program
DX: I48.91 Unspecified atrial fibrillation (principal); I25.2 Old myocardial infarction; M19.90 Unspecified osteoarthritis, unspecified site; Z88.8 Allergy status to other drugs, medicaments and biological substances; Z88.5 Allergy status to narcotic agent; Z88.2 Allergy status to sulfonamides; Z88.1 Allergy status to other antibiotic agents; Z79.899 Other long term (current) drug therapy; Z79.82 Long term (current) use of aspirin
CPT/HCPCS: 36415; 71045; 80053; 83735; 84484; 85025; 85610; 93005; 93010; 96360; 99285-25; J7040